=== PATIENT | male | born 1965 | race Caucasian/White ===

== ENCOUNTER → 2016-11-09 | Outpatient (CLI) | payer OTHER ==
--- NOTE | 2016-11-09 18:52 | MR ---
EXAMINATION TYPE: MR lumbar spine wo con DATE OF EXAM: 11/09/2016 6:23 PM COMPARISON: Lumbar spine x-ray 10/21/2016 HISTORY: Lumbago with sciatica, right side TECHNIQUE: T1 and T2 axial and sagittal images of the lumbar spine are submitted. FINDINGS: There is no abnormal signal seen within the visualized spinal cord or paraspinal soft tissu es. Simple appearing left renal cyst noted. At L1-2 there is no disc herniation or canal stenosis. Mild hypertrophic change of the facets noted. At L2-3 there is mild hypertrophic change of the facets. No disc herniation or canal stenosis. Small vertebral body hemangioma of L3 At L3-4 there is mild broad-based central disc bulging. There is hypertrophic change of sex. No signi ficant foraminal encroachment. No Canal stenosis At L4-5 there is degenerative disc disease with grade 1 anterolisthesis. Large nerve root sleeve dive rticulum on the right is seen. Synovial cyst related to facet joint external to the canal also suspec matthew. There likely is mass effect upon the exiting right nerve root. There is severe facet arthropathy appears responsible for the spondylolisthesis. Bilateral foraminal encroachment greater on the right . At L5-S1 there is moderate to severe facet arthropathy. Very mild central disc bulging but no canal s tenosis or focal herniation. Neural foramina patent. IMPRESSION: 1. Severe facet arthropathy result in a grade 1 anterolisthesis of L4 on L5 with bilateral foraminal encroachment and moderate canal stenosis as discussed above. There is abnormal signal on the sagittal view within the right neural foramina which appears to represent a combination of disc and cyst. Pos sibly related to synovial cyst. This is resulting in severe right-sided foraminal encroachment and pr obable nerve root impingement. 2. Moderate to severe facet arthropathy L5-S1 with very mild central disc broad-based bulging but no canal stenosis. 3. Broad-based central disc bulging L3-L4 but no canal stenosis.
== END | disposition home or self-care (01) ==
LOC: RADMRIMAIN 17:32
PROVIDERS: ATTEND Family Medicine
DX: M48.06 Spinal stenosis, lumbar region (principal); M51.16 Intervertebral disc disorders with radiculopathy, lumbar region; M51.17 Intervertebral disc disorders with radiculopathy, lumbosacral region; M43.16 Spondylolisthesis, lumbar region; M46.86 Other specified inflammatory spondylopathies, lumbar region; M46.87 Other specified inflammatory spondylopathies, lumbosacral region
CPT/HCPCS: 72148

== ENCOUNTER 2017-07-06 10:35 | Day surgery (SDC) | payer OTHER ==
[2017-07-04 15:41] VITALS: BMI 29.9
[~2017-07-06 10:35] MED LIST: DEXAMETHASONE SOD PHOSPHATE 10 MG/ML 1 ML VIAL IV ONE; HEPARIN SODIUM,PORCINE 5,000 UNIT/ML 1 ML VIAL SQ ONE; HYDROmorphone 0.5 MG/0.5 ML SYRINGE IVP PRN; LACTATED RINGERS 1,000 ML IV SCH; ONDANSETRON 4 MG/2 ML VIAL IVP ONE; Pre Op ABX Message 1 EACH MISC MISCELLANE ONE
[2017-07-06] MEDS: BUPIVACAINE LIPOSOME/PF 1.3% 20 ML, SODIUM CHLORIDE 0.9% 10 ML MISCELLANE ONE ×6 (11:50→13:37)
[2017-07-06] MEDS ORDERED: MIDAZOLAM 2 MG/2 ML VIAL ONE (12:54)
[2017-07-06] MEDS ORDERED: SUCCINYLCHOLINE CHLORIDE 100 MG/5 ML SYR IV ONE (12:54)
[2017-07-06] MEDS ORDERED: ROCURONIUM BROMIDE 10 MG/ML 10 ML VIAL IV ONE (12:54)
[2017-07-06] MEDS ORDERED: fentaNYL (PF) 50 MCG/ML 2 ML AMP ONE (12:54)
[2017-07-06] MEDS ORDERED: GLYCOPYRROLATE 0.2 MG/ML 2 ML VIAL ONE (12:54)
[2017-07-06] MEDS ORDERED: PROPOFOL 10 MG/ML 20 ML VIAL IV ONE (12:54)
[2017-07-06] MEDS ORDERED: NEOSTIGMINE 1 MG/ML 10 ML VIAL ONE (12:54)
[2017-07-06 13:58] VITALS: TEMP 97.6
--- NOTE | 2017-07-06 14:02 | P.OP ---
Date of Procedure: 07/06/17 Preoperative Diagnosis: 3 rd degree hemorrhoif Postoperative Diagnosis: 3rd Degree hemorrhoids Procedure(s) Performed: Hemorrhoidectomy with LigaSure Anesthesia: RELL Surgeon: Cleveland Sheikh Pathology: other Condition: stable Disposition: PACU Description of Procedure: Patient is a 50-year-old gentleman who is a large third-degree posterior relocated hemorrhoid. He bleeding. Since today for hemorrhoidectomy. After obtaining informed consent objective the operating room and after appropriate timeout placed in the prone jackknife position after getting general anesthesia. The buttock cheeks were appropriately retracted areas were prepped and draped in the usual sterile surgical fashion after which the hemorrhoid was grabbed and elevated. The LigaSure were used to go across its base thus taking the entire pedicle. There was only one large posterior hemorrhoid there were no anterior hemorrhoids. Once that was done hemostasis was secured with the help of 2-0 chromic catgut. Packing dressing was applied 4 x 4's and tape was applied. Patient tolerated procedure well there were no complications. Patient was extubated taken to recovery room in stable condition.
[2017-07-06 14:04] VITALS: RESP 18
[2017-07-06] MEDS ORDERED: KETOROLAC 30 MG/ML 1 ML VIAL IVP ONE (14:05)
[2017-07-06 14:41] VITALS: BP 125/83; PULSE 72
== END 2017-07-06 15:05 | disposition home or self-care (01) ==
LOC: OR 10:35
PROVIDERS: ATTEND Surgery
DX: K64.2 Third degree hemorrhoids (principal); I10 Essential (primary) hypertension; Z86.718 Personal history of other venous thrombosis and embolism; Z86.711 Personal history of pulmonary embolism; Z79.82 Long term (current) use of aspirin; Z79.899 Other long term (current) drug therapy
CPT/HCPCS: 46221; 88304; J2250; J1644; J1100; J2710; J2405; J3010; J1885; J0330; C9290; J2704

== ENCOUNTER → 2017-07-14 | Outpatient (CLI) | payer OTHER ==
--- NOTE | 2017-07-14 14:26 | US ---
EXAMINATION TYPE: US venous doppler duplex LE LT DATE OF EXAM: 07/14/2017 1:19 PM COMPARISON: NONE CLINICAL HISTORY: M79.605 PAIN IN LT LEG. calf pain today, patient states possible strain, h/o dv and svt, not on thinners now SIDE PERFORMED: Left TECHNIQUE: The lower extremity deep venous system is examined utilizing real time linear array sonog ida with graded compression, doppler sonography and color-flow sonography. VESSELS IMAGED: External Iliac Vein (EIV) Common Femoral Vein Deep Femoral Vein Greater Saphenous Vein * Femoral Vein Popliteal Vein Small Saphenous Vein * Proximal Calf Veins (* superficial vessels) Left Leg: Appears negative for acute DVT. Chronic process seen within left popiteal vein and GSV at mid calf. tech impression given to Stephanie Alamo at office @ [id number] IMPRESSION: 1. There appears to be evidence of thrombus within the popliteal vein and greater saphenous vein whic h was also seen on the previous exam. No new area of DVT identified. Finding likely reflects chronic DVT. Correlate clinically for confirmation.
== END ==
LOC: RADUSWWP 12:53
PROVIDERS: ATTEND Family Medicine
DX: M79.605 Pain in left leg (principal)

== ENCOUNTER → 2018-02-02 | Outpatient (CLI) | payer OTHER ==
[~2018-02-02] MED LIST changes: -DEXAMETHASONE SOD PHOSPHATE 10 MG/ML 1 ML VIAL IV ONE; -HEPARIN SODIUM,PORCINE 5,000 UNIT/ML 1 ML VIAL SQ ONE; -HYDROmorphone 0.5 MG/0.5 ML SYRINGE IVP PRN; -LACTATED RINGERS 1,000 ML IV SCH; -ONDANSETRON 4 MG/2 ML VIAL IVP ONE; -Pre Op ABX Message 1 EACH MISC MISCELLANE ONE; +REGADENOSON 0.4 MG/5 ML SYRINGE IV ONE
--- NOTE | 2018-02-02 11:19 | NM ---
EXAMINATION TYPE: NM stress lexiscan cardiolite DATE OF EXAM: 02/02/2018 COMPARISON: NONE HISTORY: Chest pain TECHNIQUE: After the intravenous administration of 10.5 mCi Tc 99m Sestamibi - Cardiolite resting SP ECT images acquired 45 minutes post injection. The patient received 0.4mg Lexiscan, 25.8 mCi Tc 99m Sestamibi - Stress images obtained [address] injection FINDINGS: Review of stress and rest SPECT images demonstrates no distinct perfusion abnormality. Gated analysi s shows normal wall motion with an estimated left ventricular ejection fraction of 52 %. IMPRESSION: No scintigraphic evidence for reversible ischemia.
--- NOTE | 2018-02-02 11:33 | EST ---
EXERCISE STRESS AGE: 53 SEX: M HT: 5'11" WT: 220 PROTOCOL: Lexiscan Cardiolite Stress Test HEART RATE REST: 87 BLOOD PRESSURE REST: 149/79 MAXIMUM HEART RATE ACHIEVED: 108 MAXIMUM BLOOD PRESSURE: 149/79 85% MPHR: 142 100% MPHR: 167 INDICATIONS: Chest pain. CLINICAL INFORMATION: STRESS DATA: Pretesting physical examination showed a heart rate of 787, pressure is 149/79 mmHg. Baseline EKG shows sinus mechanism. 0.4 mg of Lexiscan was given to the patient over 15 seconds per protocol. The max heart rate was 108 beats per minute and maximum pressure was 149/79 mmHg. Clinically, the patient did not have any symptoms of chest pain or discomfort. The EKG did not show any significant ST or T-wave abnormalities consistent with ischemia. CONCLUSION: 1. Nondiagnostic electrocardiogram stress testing in response to Lexiscan. 2. Please follow up on the Cardiolite portion on separate report from the Radiology Department. MMODL / IJN: [id number] /
== END | disposition home or self-care (01) ==
LOC: RADNMMAIN 07:57
PROVIDERS: ATTEND Family Medicine
DX: R07.9 Chest pain, unspecified (principal); Z82.49 Family history of ischemic heart disease and other diseases of the circulatory system
CPT/HCPCS: 93017; 78452; A9500; J2785

== ENCOUNTER 2018-09-26 12:25 | Inpatient (IN) | payer BC, OTHER ==
[2018-09-26] MEDS ORDERED: ADENOSINE 3 MG/ML 2 ML VIAL IVP STA ×3 (12:46→18:04)
[2018-09-26] MEDS ORDERED: ASPIRIN 81 MG PO STA (12:46)
[2018-09-26] MEDS ORDERED: SODIUM CHLORIDE 0.9% 1,000 ML IV STA (12:46)
--- NOTE | 2018-09-26 13:12 | ED ---
Chest Pain HPI - General Chief Complaint: Chest Pain Stated Complaint: CHEST PAIN Time Seen by Provider: 09/26/18 12:35 Source: patient, family, RN notes reviewed Mode of arrival: ambulatory Limitations: no limitations - History of Present Illness Initial Comments: This is a 53-year-old male with a history of pulmonary embolism in the past who states he had the onset about 45 minutes prior to arrival of midsternal chest discomfort he described it as crampy and tight 6/10 severity some slight shortness of breath with it. He denied any palpitations fevers chills nausea vomiting sweats or other symptoms. He states this does not feel like his prior PE episode. This is only several years ago this occurred. He does state he was drinking quite heavily over New Year's day which is 2 days ago he has some coffee this morning no new medications. MD Complaint: chest pain - Related Data Home Medications Medication Instructions Recorded Confirmed Lisinopril/Hydrochlorothiazide 1 tab PO DAILY 09/08/15 09/26/18 [Lisinopril-Hctz 10-12.5 mg Tab] Aspirin 81 mg PO DAILY 07/04/17 09/26/18 Ascorbic Acid [Vitamin C] 1,000 mg PO DAILY 09/26/18 09/26/18 Allergies Allergy/AdvReac Type Severity Reaction Status Date / Time No Known Allergies Allergy Verified 09/26/18 13:10 Review of Systems ROS Statement: Those systems with pertinent positive or pertinent negative responses have been documented in the HPI. ROS Other: All systems not noted in ROS Statement are negative. Past Medical History Past Medical History: Cancer, Deep Vein Thrombosis (DVT), Hypertension, Pulmonary Embolus (PE) Additional Past Medical History / Comment(s): HX skin cancer History of Any Multi-Drug Resistant Organisms: None Reported Past Surgical History: Cholecystectomy, Hernia Repair Additional Past Surgical History / Comment(s): LESION -SKIN CANCER Past Anesthesia/Blood Transfusion Reactions: No Reported Reaction Past Psychological History: No Psychological Hx Reported Smoking Status: Former smoker Past Alcohol Use History: Daily Past Drug Use History: None Reported - Past Family History Brother(s) Family Medical History: Coronary Artery Disease (CAD) Additional Family Medical History / Comment(s): QUAD. VESSEL BYPASS Mother Family Medical History: Cancer Additional Family Medical History / Comment(s): OVARIAN General Exam - General Exam Comments Initial Comments: This is a well-developed well-nourished awake alert oriented times 3 male Limitations: no limitations General appearance: alert, anxious Head exam: Present: atraumatic, normocephalic, normal inspection Eye exam: Present: normal appearance, PERRL, EOMI. Absent: scleral icterus, conjunctival injection, periorbital swelling ENT exam: Present: normal exam, mucous membranes moist Neck exam: Present: normal inspection. Absent: tenderness, meningismus, lymphadenopathy Respiratory exam: Present: normal lung sounds bilaterally. Absent: respiratory distress, wheezes, rales, rhonchi, stridor Cardiovascular Exam: Present: normal rhythm, tachycardia, normal heart sounds. Absent: systolic murmur, diastolic murmur, rubs, gallop, clicks GI/Abdominal exam: Present: soft, normal bowel sounds. Absent: distended, tenderness, guarding, rebound, rigid Extremities exam: Present: normal inspection, full ROM, normal capillary refill. Absent: tenderness, pedal edema, joint swelling, calf tenderness Back exam: Present: normal inspection Neurological exam: Present: alert, oriented X3, CN II-XII intact Psychiatric exam: Present: normal affect, normal mood Skin exam: Present: warm, dry, intact, normal color. Absent: rash Course Vital Signs 09/26/18 09/26/18 09/26/18 12:28 13:13 13:18 Temperature 97.5 F L Pulse Rate 116 H 126 H 129 H Respiratory 18 Rate Blood Pressure 180/119 146/118 147/100 O2 Sat by Pulse 97 94 L 94 L Oximetry 09/26/18 13:22 Temperature Pulse Rate 125 H Respiratory 18 Rate Blood Pressure 133/102 O2 Sat by Pulse 94 L Oximetry - Reevaluation(s) Reevaluation #1: 09/26/18 13:26 Patient is state he has some relief with the nitroglycerin was administered. He also did have a headache from it. His heart rate still maintains approximately 120. He also states he did not take his lisinopril this morning. Reevaluation #2: 09/26/18 14:25 Patient is feeling somewhat better. Chest pain has improved his heart rate still is in the 1 teens to 120. I did discuss the findings with the patient and his . I did also discuss case with Dr. House patient will be admitted for evaluation by cardiology. The patient d-dimer is within normal limits Procedures - Procedures Initial comment: Patient did have evidence of SVT. Patient was given IV adenosine first 6 mg which did not change the rate he had this was followed by 12 mg IV push the patient rate did improve to around 120 bpm with frequent unifocal PVCs noted. Patient still is having chest pain afterwards. Aspirin and sublingual nitroglycerin are ordered. Disposition Clinical Impression: Unstable angina, Supraventricular tachycardia, Premature ventricular contractions, Elevated troponin, Chest pain, Sinus tachycardia Disposition: ADMITTED IP TO THIS HOSP Condition: Stable Referrals: Anand Schmid MD [Primary Care Provider] - 1-2 days
[2018-09-26] MEDS: NITROGLYCERIN SL TABS 0.4 MG TAB SUBLINGUAL STA ×3 (13:13→13:22)
[2018-09-26] MEDS ORDERED: MORPHINE SULFATE 4 MG/ML SYRINGE IVP STA (13:24)
[2018-09-26 13:26] LABS: Basophils # (A) 0.1 k/uL (0-0.2); Basophils % (A) 1 %; Eosinophils # (A) 0.3 k/uL (0-0.7); Eosinophils % (A) 2 %; HCT 52.7 % (39.0-53.0); HGB 18.4 gm/dL (13.0-17.5); Lymphocytes # (A) 2.3 k/uL (1.0-4.8); Lymphocytes % (A) 21 %; MCH 32.5 pg (25.0-35.0); MCHC 34.9 g/dL (31.0-37.0); MCV 93.1 fL (80.0-100.0); Mean Platelet Volume 7.6; Monocytes # (A) 0.6 k/uL (0-1.0); Monocytes % (A) 5 %; Neutrophils # (A) 7.6 k/uL (1.3-7.7); Neutrophils % (A) 69 %; Platelet Count 297 k/uL (150-450); RBC 5.65 m/uL (4.30-5.90); RDW 12.4 % (11.5-15.5); WBC 11.1 k/uL (3.8-10.6)
[2018-09-26 13:37] LABS: ALT 64 U/L (21-72); AST 46 U/L (17-59); Albumin 4.4 g/dL (3.5-5.0); Alkaline Phosphatase 100 U/L (38-126); Anion Gap 10 mmol/L; Blood Urea Nitrogen 15 mg/dL (9-20); Calcium 9.6 mg/dL (8.4-10.2); Carbon Dioxide 26 mmol/L (22-30); Chloride 104 mmol/L (98-107); Glucose 123 mg/dL (74-99); Potassium 4.4 mmol/L (3.5-5.1); Sodium 140 mmol/L (137-145); Total Bilirubin 0.8 mg/dL (0.2-1.3); Total Protein 7.4 g/dL (6.3-8.2)
[2018-09-26 13:38] LABS: D-Dimer 0.36 mg/L FEU (<0.60); INR 0.9 (<1.2); Partial Thromboplastin Time 23.2 sec (22.0-30.0)
--- NOTE | 2018-09-26 13:51 | XR ---
EXAMINATION TYPE: XR chest 2V DATE OF EXAM: 09/26/2018 COMPARISON: NONE TECHNIQUE: PA and lateral views submitted. HISTORY: Chest pain FINDINGS: The lungs are clear and there is no pneumothorax, pleural effusion, or focal pneumonia. Upper media stinum is mildly prominent there is hypertrophic and degenerative change of the spine. Surgical clip in the abdomen noted. No overt failure. Biapical pleural thickening. IMPRESSION: 1. Mildly prominent upper mediastinum is nonspecific and could be correlated with CT scan as clinical ly warranted.
[2018-09-26 14:07] LABS: Creatine Kinase MB 1.2 ng/mL (0.0-2.4)
[2018-09-26 14:12] LABS: Troponin I 0.067 ng/mL (0.000-0.034)
[2018-09-26] MEDS ORDERED: HEPARIN SODIUM,PORCINE 5,000 UNIT/ML 1 ML VIAL IV ONE (14:27)
[2018-09-26] MEDS ORDERED: NITROGLYCERIN SL TABS 0.4 MG TAB SUBLINGUAL PRN (14:27)
[2018-09-26] MEDS: HEPARIN SOD,PORK IN 0.45% NACL 25,000 UNIT in 0.45% NACL 1 250ML.BAG IV SCH (16:05)
[2018-09-26] MEDS ORDERED: LISINOPRIL-HCTZ 10-12.5 MG 1 EACH TAB PO STA (16:11)
[2018-09-26] MEDS ORDERED: VERAPAMIL 80 MG TAB PO STA (18:15)
[2018-09-26 19:59] LABS: Creatine Kinase MB 3.7 ng/mL (0.0-2.4)
[2018-09-26 20:00] LABS: Troponin I 1.73 ng/mL (0.000-0.034)
[2018-09-26] MEDS: NITROGLYCERIN OINT 1 INCH/GM PACKET TOPICAL SCH ×2 (20:58→22:52)
[2018-09-26] MEDS: VERAPAMIL 80 MG TAB PO SCH (21:57)
[2018-09-27] MEDS ORDERED: HYDROcodone/APAP 5-325MG 1 EACH TAB PO PRN (00:11)
[2018-09-27] MEDS ORDERED: ALPRAZolam 0.25 MG TAB PO PRN ×2 (00:11→09:33)
[2018-09-27 01:59] LABS: Creatine Kinase MB 4.6 ng/mL (0.0-2.4)
[2018-09-27 02:01] LABS: Troponin I 0.924 ng/mL (0.000-0.034)
--- NOTE | 2018-09-27 05:20 | HP ---
HISTORY AND PHYSICAL DATE OF SERVICE: 09/26/2018 CHIEF COMPLAINT: Chest pain and palpitations. HISTORY OF PRESENT ILLNESS: This 53-year-old gentleman with a past medical history of multiple medical problems including history of DVT, history of hypertension, history of pulmonary embolism , history of cholecystectomy, history of hernia repair being followed by Dr. Schmid in the outpatient setting, was complaining of chest pains and as well as palpitations. The chest pain was felt in the crampy mid sternal 6 out of 10 and this is without radiation. The patient came to [facility] and the patient was found to have multiple episodes of SVT. Patient was given adenosine x2 and the patient admitted for further evaluation and treatment. There is no history of any fever, rigors. No history of headache, loss of consciousness or seizures. PVCs also noted. The troponins were found to be elevated up to 0.067 and 1.73 and the patient was closely monitored. There is no history of fever or rigors. No history of headache, loss of consciousness or seizures. PAST MEDICAL HISTORY: History of DVT, history hypertension, history of pulmonary embolism, cholecystectomy. MEDICATIONS: Medications prior to admission include: 1. Aspirin 81 mg daily. 2. Lisinopril hydrochlorothiazide 10/12.5 mg p.o. daily. 3. Vitamin C 1000 mg daily. ALLERGIES: Allergies are none. FAMILY HISTORY: History of ovarian cancer in the family. SOCIAL HISTORY: History of occasional alcohol. Previous history of smoking. REVIEW OF SYSTEMS: ENT: No diminished hearing or diminished vision. CARDIOVASCULAR SYSTEM: As mentioned earlier. RESPIRATORY SYSTEM: As mentioned earlier. GI: No nausea. : No dysuria. NERVOUS SYSTEM: No numbness or weakness. ALLERGY/IMMUNOLOGY: No history of asthma. MUSCULOSKELETAL: As mentioned earlier. HEMATOLOGY/ONCOLOGY: No history of anemia. ENDOCRINE: No history of diabetes or hypothyroidism. CONSTITUTIONAL: As mentioned earlier. DERMATOLOGY: Negative. RHEUMATOLOGY: Negative. PSYCHIATRY: As mentioned earlier. PHYSICAL EXAMINATION: The patient is alert and oriented x3. The pulse is 109. Blood pressure 114/74, respiration 15, temperature 98.6, pulse ox 96% on room air. HEENT: Conjunctivae normal. Oral mucosa moist. Neck is no jugular venous distention. No carotid bruit. No lymph node enlargement. CARDIOVASCULAR: S1, S2 muffled. No S3, no S4. RESPIRATORY: Breath sounds diminished at the bases. No rhonchi. No crackles. ABDOMEN: Soft, nontender. No mass palpable. LEGS: No edema. No swelling. NERVOUS SYSTEM: Higher functions as mentioned earlier. Moves all 4 limbs. No focal deficits. LYMPHATICS: No lymphadenopathy of the neck, axillae or groin. SKIN: No ulcer, rash or bleeding. JOINTS: No active deforming arthropathy. LABS: EKG supraventricular tachycardia. Chest x-ray, mild prominent mediastinum. . Other labs are WBC 11.1, hemoglobin is 18.4. Troponin 1.730. ASSESSMENT: 1. Chest pain possible acute non ST segment elevation myocardial infarction with troponin 1.730. 2. Supraventricular tachycardia. 3. History of deep venous thrombosis. 4. History of hypertension. 5. History of pulmonary embolism. 6. History of skin cancer. 7. History of diverticulitis. 8. History of cholecystectomy. 9. Remote history of nicotine dependence. RECOMMENDATIONS AND DISCUSSION: This 53-year-old gentleman who presented with multiple medical issues, we will monitor the patient closely. Continue the current medications, continue symptomatic treatment. Will initiate the home medications, IV heparin, cardiology consultation possible cardiac cath. The prognosis guarded because of the multiple complex medical issues. Further recommendations to follow. A copy of dictation forwarded to Dr. Schmid who is the primary physician. Cardiology has been consulted. MMODL / IJN: [id number] / MTDD
[2018-09-27] MEDS: NITROGLYCERIN OINT 1 INCH/GM PACKET TOPICAL SCH ×2 (06:00→11:49)
[2018-09-27 07:14] LABS: Cholesterol 162 mg/dL (<200); HDL Cholesterol 50 mg/dL (40-60); LDL Cholesterol,Calculated 81 mg/dL (0-99); Triglycerides 154 mg/dL (<150)
[2018-09-27] MEDS: PANTOPRAZOLE 40 MG TABLET PO SCH (07:29)
[2018-09-27] MEDS ORDERED: LISINOPRIL-HCTZ 10-12.5 MG 1 EACH TAB PO SCH (09:00)
[2018-09-27] MEDS ORDERED: ASPIRIN 325 MG TAB PO SCH (09:00)
[2018-09-27] MEDS ORDERED: ATORVASTATIN 80 MG TAB PO SCH (09:30)
[2018-09-27] MEDS ORDERED: NITROGLYCERIN SL TABS 0.4 MG TAB SUBLINGUAL PRN (09:33)
[2018-09-27] MEDS ORDERED: ATORVASTATIN 80 MG TAB PO STA (09:33)
[2018-09-27] MEDS ORDERED: SODIUM CHLORIDE 0.9% 1,000 ML in EMPTY BAG 1 BAG IV ONE (09:33)
[2018-09-27] MEDS ORDERED: ALPRAZolam 0.5 MG TAB PO PRN (09:33)
[2018-09-27] MEDS ORDERED: ASPIRIN 325 MG TAB PO STA (09:33)
--- NOTE | 2018-09-27 10:06 | P.CRDCN ---
History of Present Illness History of present illness: This is Dr. Soriano dictating a consult on this patient The patient was interviewed and examined by me IMPRESSION / ASSESSMENT: Non-Q wave myocardial infarction with abnormal ECG with ST segment abnormality with T-wave inversions, Troponins of 0.06, 1.73, 0.92 SVT, adenosine sensitive,likely AV node reentry, Wellens sign Past history of pulmonary embolism Aspirin statins low-dose beta blockers patient's blood pressure is low Hypertension on lisinopril hydrochlorothiazide History of empty HFR-positive gene and DVT) members and Lower GI bleeding on anticoagulation Family history of CAD and coronary artery bypass grafting Former smoker Regular alcohol use PLAN: Coronary angiography today Medical treatment for hypertension SVT CAD Statins and baby aspirin HPI Patient presented with midsternal chest discomfort lasting 45 minutes prior to arrival 610 severity. He states it did not feel like the chest pain he had when he experienced his pulmonary embolism No dizziness lightheadedness ROS: No fever chills or rigors, no cough, phlegm or expectoration, no nausea, vomiting or diarrhea, no hematuria, dysuria, no musculoskeletal complaints, no strokes or seizures, no skin lesions. EXAMINATION: On examination blood pressure is 102/64 mmHg heart sounds are normal Breath sounds are clear no rhonchi no crackles Normal S1 normal S2 no murmurs or gallops Afebrile No lower extremity edema REVIEW OF LABS, ECG & MEDICAL DATA Abnormal cardiac enzymes Twelve-lead ECG shows cold up fluids ST segments with T-wave inversion V2 to V6 Supra ventricular tachycardia likely AV luciana reentrant tachycardia adenosine sensitive Past Medical History Past Medical History: Cancer, Deep Vein Thrombosis (DVT), Hypertension, Pulmonary Embolus (PE) Additional Past Medical History / Comment(s): HX skin cancer, diverticulitis, hemorrhoids(sx)- past anemia required blood trasnfusion. History of Any Multi-Drug Resistant Organisms: None Reported Past Surgical History: Cholecystectomy, Hernia Repair Additional Past Surgical History / Comment(s): LESION -SKIN CANCER , hemorrhoidectomy Past Anesthesia/Blood Transfusion Reactions: No Reported Reaction Additional Past Anesthesia/Blood Transfusion Reaction / Comment(s): blood transfusions in past-no reaction Smoking Status: Former smoker - Past Family History Brother(s) Family Medical History: Coronary Artery Disease (CAD) Additional Family Medical History / Comment(s): QUAD. VESSEL BYPASS Mother Family Medical History: Cancer Additional Family Medical History / Comment(s): OVARIAN Medications and Allergies Home Medications Medication Instructions Recorded Confirmed Type Lisinopril/Hydrochlorothiazide 1 tab PO DAILY 09/08/15 09/26/18 History [Lisinopril-Hctz 10-12.5 mg Tab] Aspirin 81 mg PO DAILY 07/04/17 09/26/18 History Ascorbic Acid [Vitamin C] 1,000 mg PO DAILY 09/26/18 09/26/18 History Allergies Allergy/AdvReac Type Severity Reaction Status Date / Time No Known Allergies Allergy Verified 09/26/18 13:10 Physical Exam Vitals: Vital Signs Temp Pulse Pulse Resp BP BP Pulse Ox 09/27/18 04:00 97.4 F L 95 18 102/64 96 09/27/18 00:00 98.3 F 100 18 91/59 95 09/26/18 20:23 98.6 F 107 H 09/26/18 20:00 98.1 F 98 100 18 110/79 120/85 98 09/26/18 19:00 109 H 15 114/74 96 09/26/18 18:35 117 H 18 121/74 95 09/26/18 18:00 165 H 16 129/107 95 09/26/18 17:00 112 H 17 122/87 97 09/26/18 16:00 116 H 16 120/100 96 09/26/18 15:00 117 H 18 116/98 96 09/26/18 14:00 120 H 17 134/101 96 09/26/18 13:22 125 H 18 133/102 94 L 09/26/18 13:18 129 H 147/100 94 L 09/26/18 13:13 126 H 146/118 94 L 09/26/18 13:00 165 H 16 137/121 94 L 09/26/18 12:28 97.5 F L 116 H 18 180/119 97 Intake and Output 09/26/18 09/27/18 09/27/18 22:59 06:59 14:59 Intake Total 109.5 96.843 Output Total 0 Balance 109.5 96.843 Intake: IV 30 0.9 30 Intake, IV Titration 79.5 96.843 Amount Heparin Sod,Pork in 0.45% 79.5 96.843 NaCl 25,000 unit In 0.45 % NaCl 1 250ml.bag @ 10. 022 UNITS/KG/HR 10 mls/hr IV .Q24H [facility] Rx#: [id number] Output: Urine 0 Other: Voiding Method Toilet Toilet # Voids 1 Weight 106.3 kg Results 09/26/18 12:56 09/26/18 12:56 Cardiac Enzymes 09/26/18 09/26/18 09/26/18 Range/Units 12:56 12:56 18:50 AST 46 (17-59) U/L CK-MB (CK-2) 1.2 3.7 H (0.0-2.4) ng/mL Troponin I 0.067 H* 1.730 H* (0.000-0.034) ng/mL 09/27/18 Range/Units 01:06 AST (17-59) U/L CK-MB (CK-2) 4.6 H (0.0-2.4) ng/mL Troponin I 0.924 H* (0.000-0.034) ng/mL Coagulation 09/26/18 09/26/18 09/27/18 Range/Units 12:56 23:18 05:58 PT 10.0 (9.0-12.0) sec APTT 23.2 31.3 H 37.7 H (22.0-30.0) sec Lipids 09/27/18 Range/Units 05:58 Triglycerides 154 H (<150) mg/dL Cholesterol 162 (<200) mg/dL HDL Cholesterol 50 (40-60) mg/dL CBC 09/26/18 Range/Units 12:56 WBC 11.1 H (3.8-10.6) k/uL RBC 5.65 (4.30-5.90) m/uL Hgb 18.4 H (13.0-17.5) gm/dL Hct 52.7 (39.0-53.0) % Plt Count 297 (150-450) k/uL Comprehensive Metabolic Panel 09/26/18 Range/Units 12:56 Sodium 140 (137-145) mmol/L Potassium 4.4 (3.5-5.1) mmol/L Chloride 104 (98-107) mmol/L Carbon Dioxide 26 (22-30) mmol/L BUN 15 (9-20) mg/dL Creatinine 1.03 (0.66-1.25) mg/dL Glucose 123 H (74-99) mg/dL Calcium 9.6 (8.4-10.2) mg/dL AST 46 (17-59) U/L ALT 64 (21-72) U/L Alkaline Phosphatase 100 (38-126) U/L Total Protein 7.4 (6.3-8.2) g/dL Albumin 4.4 (3.5-5.0) g/dL Current Medications Generic Name Dose Route Start Last Admin Trade Name Freq PRN Reason Stop Dose Admin Acetaminophen 500 mg 09/27/18 00:11 Tylenol Tab PO Q6HR PRN Fever and/ or Pain Hydrocodone Bitart/Acetaminophen 1 each 09/27/18 00:11 [place] 5-325 PO Q6HR PRN Pain Alprazolam 0.25 mg 09/27/18 09:33 Xanax PO Q6HR PRN Mild Anxiety Alprazolam 0.5 mg 09/27/18 09:33 Xanax PO Q6HR PRN Moderate Anxiety Aspirin 325 mg 09/27/18 09:00 Aspirin PO DAILY [facility] Atorvastatin Calcium 80 mg 09/27/18 09:30 Lipitor PO DAILY [facility] Lisinopril/HCTZ 1 each 09/27/18 09:00 Zestoretic 10-12.5 PO DAILY [facility] Heparin Sodium/Sodium Chloride 250 mls @ 10 mls/hr 09/26/18 14:30 09/27/18 07 :30 25,000 unit/ Sodium Chloride IV 16 units/kg/hr .Q24H [facility] 15.96 mls/hr Titration Protocol 10.022 UNITS/KG/HR Sodium Chloride 1,000 ml/ IV 1,000 mls @ 106.3 mls/hr 09/27/18 09:33 Solution IV 09/27/18 18:57 .Q9H25M ONE 1 ML/KG/HR Metoprolol Tartrate 12.5 mg 09/27/18 09:30 Lopressor PO BID [facility] Nitroglycerin 1 inch 09/26/18 18:00 09/27/18 06:00 Nitro-Bid Oint TOPICAL Not Given Q6HR [facility] Nitroglycerin 0.4 mg 09/27/18 09:33 Nitrostat SUBLINGUAL Q5M PRN Chest Pain Pantoprazole Sodium 40 mg 09/27/18 07:30 09/27/18 07:29 Protonix PO 40 mg AC-[id number] [facility] Administration Intake and Output 09/26/18 09/27/18 09/27/18 22:59 06:59 14:59 Intake Total 109.5 96.843 Output Total 0 Balance 109.5 96.843 Intake: IV 30 0.9 30 Intake, IV Titration 79.5 96.843 Amount Heparin Sod,Pork in 0.45% 79.5 96.843 NaCl 25,000 unit In 0.45 % NaCl 1 250ml.bag @ 10. 022 UNITS/KG/HR 10 mls/hr IV .Q24H [facility] Rx#: [id number] Output: Urine 0 Other: Voiding Method Toilet Toilet # Voids 1 Weight 106.3 kg 09/26/18 12:56 09/26/18 12:56
[2018-09-27] MEDS ORDERED: fentaNYL (PF) 50 MCG/ML 2 ML AMP ONE (10:35)
[2018-09-27] MEDS ORDERED: LIDOCAINE 1% INJ 10MG/ML (20 ML MDV) ONE (10:35)
[2018-09-27] MEDS ORDERED: IV FLUID CONTINUATION 950 ML IV ONE (10:45)
[2018-09-27] MEDS ORDERED: fentaNYL (PF) 50 MCG/ML 2 ML AMP IV ONE (10:59)
[2018-09-27] MEDS: MIDAZOLAM 2 MG/2 ML VIAL IV ONE ×2 (10:59→11:01)
[2018-09-27] MEDS ORDERED: LIDOCAINE 1% INJ 10MG/ML (20 ML MDV) SQ ONE ×2 (10:59→11:00)
[2018-09-27] MEDS ORDERED: IOPAMIDOL-370 125ML BTL INJ ONE (11:15)
[2018-09-27] MEDS ORDERED: RX INFO: IV CONTRAST WAS GIVEN 1 EACH MISC MISCELLANE PRN (11:27)
[2018-09-27] MEDS ORDERED: CLOPIDOGREL 75 MG TAB PO SCH (11:30)
--- NOTE | 2018-09-27 12:19 | CC ---
CARDIAC CATHETERIZATION REPORT Mr. Hoover is a 53-year-old gentleman who was admitted with chest pain and palpitations. Patient's initial EKG showed supraventricular tachycardia. Subsequent EKG showed evidence of T-wave inversions in the anterior lateral leads. Patient had a mild elevation in the troponin. He is suggestive of possible non-Q-wave myocardial infarction. In view of that, the patient was recommended to have a cardiac catheterization for definitive diagnosis. PROCEDURE DESCRIPTION: The right groin was prepped and draped in the usual manner and the skin was infiltrated with 2% Xylocaine. The right femoral artery was entered using a Seldinger technique and a micropuncture needle. The patient tolerated the procedure well. Sheath was removed and good hemostasis was achieved with the use of Angio-Seal. HEMODYNAMICS: Left ventricular end-diastolic pressure is 20-22 mmHg prior to angiography. No gradient is noted across the aortic valve. Moderate sedation was used. Sedation time was 20 minutes. SELECTIVE CORONARY ANGIOGRAPHY: Left main coronary artery is normal and patent. LAD is a good caliber blood vessel. Proximal LAD has about minimal plaque about 20% stenosis. Circumflex coronary artery is normal. Right coronary artery is a large caliber blood vessel and is normal. Left ventriculography was performed in 30-degree CATHERINE projections, which reveals extensive anterior apical as well as inferior apical hypokinesia, only basal segments are ciera. This is suggestive of possible takotsubo syndrome. FINAL IMPRESSION: 1. This study reveals minimal plaque in the proximal left anterior descending artery. 2. Circumflex and right coronary arteries are normal. 3. Left ventriculography reveals extensive anterior apical and inferior apical hypokinesia with only basal segments are ciera suggestive of possible takotsubo syndrome. RECOMMENDATIONS: Continue medical treatment. Also do the D-dimer test to rule out any remote possibility of pulmonary embolism. MMODL / IJN: [id number] /
[2018-09-27 12:37] LABS: Basophils # (A) 0.1 k/uL (0-0.2); Basophils % (A) 1 %; Eosinophils # (A) 0.3 k/uL (0-0.7); Eosinophils % (A) 3 %; HCT 47.6 % (39.0-53.0); HGB 15.9 gm/dL (13.0-17.5); Lymphocytes # (A) 1.5 k/uL (1.0-4.8); Lymphocytes % (A) 19 %; MCH 31.5 pg (25.0-35.0); MCHC 33.5 g/dL (31.0-37.0); MCV 94.1 fL (80.0-100.0); Mean Platelet Volume 7.7; Monocytes # (A) 0.5 k/uL (0-1.0); Monocytes % (A) 6 %; Neutrophils # (A) 5.7 k/uL (1.3-7.7); Neutrophils % (A) 71 %; Platelet Count 183 k/uL (150-450); RBC 5.05 m/uL (4.30-5.90); RDW 12.4 % (11.5-15.5); WBC 8.1 k/uL (3.8-10.6)
[2018-09-27 12:52] LABS: Anion Gap 3 mmol/L; Blood Urea Nitrogen 12 mg/dL (9-20); Calcium 8.9 mg/dL (8.4-10.2); Carbon Dioxide 31 mmol/L (22-30); Chloride 105 mmol/L (98-107); Glucose 116 mg/dL (74-99); Magnesium 2.1 mg/dL (1.6-2.3); Potassium 4.8 mmol/L (3.5-5.1); Sodium 139 mmol/L (137-145)
[2018-09-27] MEDS: METOPROLOL TARTRATE 12.5 MG TAB PO SCH ×2 (12:52→20:20)
--- NOTE | 2018-09-27 14:09 | ECHOF ---
Referral Reason:nstemi MEASUREMENTS -------- HEIGHT: 180.3 cm WEIGHT: 106.1 kg BP: 102/64 RVIDd: 3.0 cm (< 3.3) IVSd: 1.2 cm (0.6 - 1.1) LVIDd: 3.9 cm (3.9 - 5.3) LVPWd: 1.2 cm (0.6 - 1.1) IVSs: 1.3 cm LVIDs: 3.6 cm LVPWs: 1.3 cm LAESV Index (A-L): 23.58 ml/m Ao Diam: 3.6 cm (2.0 - 3.7) AV Cusp: 2.3 cm (1.5 - 2.6) LA Diam: 3.0 cm (2.7 - 3.8) MV E Willis: 0.52 m/s MV DecT: 246 ms MV A Willis: 0.55 m/s MV E/A Ratio: 0.94 RAP: 5.00 mmHg RVSP: 8.81 mmHg FINDINGS -------- Sinus rhythm. This was a technically adequate study. The left ventricular size is normal. There is mild concentric left ventricular hypertrophy. Overa ll left ventricular systolic function is severely impaired with, an EF between 20 - 25 %. Mid and dis sanjana s eptal Hypokinesis. Apical Hypokinesis. The right ventricle is normal in size and function. Normal LA size by volume 22+/-6 ml/m2. The right atrium is normal in size. The aortic valve is trileaflet, and appears structurally normal. No aortic stenosis or regurgitation. The mitral valve leaflets are mildly thickened. There is trace to mild mitral regurgitation. Trace tricuspid regurgitation present. Right ventricular systolic pressure is normal at < 35 mmHg. There is no evidence of pulmonary hypertension. Trace/mild (physiologic) pulmonic regurgitation. The aortic root size is normal. Normal inferior vena cava with normal inspiratory collapse consistent with estimated right atrial pre ssure of 5 mmHg. There is no pericardial effusion. CONCLUSIONS -------- 1. Sinus rhythm. 2. This was a technically adequate study. 3. The left ventricular size is normal. 4. There is mild concentric left ventricular hypertrophy. 5. Overall left ventricular systolic function is severely impaired with, an EF between 20 - 25 %. 6. Mid and distal septal Hypokinesis. 7. Apical Hypokinesis. 8. Normal LA size by volume 22+/-6 ml/m2. 9. The aortic valve is trileaflet, and appears structurally normal. No aortic stenosis or regurgitati on. 10. The mitral valve leaflets are mildly thickened. 11. There is trace to mild mitral regurgitation. 12. Trace tricuspid regurgitation present. 13. Right ventricular systolic pressure is normal at < 35 mmHg. 14. There is no evidence of pulmonary hypertension. 15. Trace/mild (physiologic) pulmonic regurgitation. 16. The aortic root size is normal. 17. There is no pericardial effusion. MEDICAL [employer]PARATUS MODEL MAKER: Yasmani Wheeler RDCS
[2018-09-27] MEDS: ACETAMINOPHEN TAB 500 MG TAB PO PRN (16:00)
[2018-09-27] MEDS: HEPARIN SOD,PORK IN 0.45% NACL 25,000 UNIT in 0.45% NACL 1 250ML.BAG IV SCH (19:04)
[2018-09-27] MEDS: VERAPAMIL 80 MG TAB PO SCH (19:05)
[2018-09-28] MEDS: ACETAMINOPHEN TAB 500 MG TAB PO PRN ×2 (05:58→21:00)
[2018-09-28] MEDS: PANTOPRAZOLE 40 MG TABLET PO SCH (05:59)
[2018-09-28 06:54] LABS: Basophils % (A) 0 %; Eosinophils # (A) 0.2 k/uL (0-0.7); Eosinophils % (A) 2 %; HCT 48.3 % (39.0-53.0); HGB 16.2 gm/dL (13.0-17.5); Lymphocytes # (A) 1.2 k/uL (1.0-4.8); Lymphocytes % (A) 9 %; MCH 31.3 pg (25.0-35.0); MCHC 33.5 g/dL (31.0-37.0); MCV 93.6 fL (80.0-100.0); Mean Platelet Volume 7.4; Monocytes # (A) 0.7 k/uL (0-1.0); Monocytes % (A) 5 %; Neutrophils # (A) 10.5 k/uL (1.3-7.7); Neutrophils % (A) 82 %; Platelet Count 215 k/uL (150-450); RBC 5.16 m/uL (4.30-5.90); RDW 12.3 % (11.5-15.5); WBC 12.8 k/uL (3.8-10.6)
[2018-09-28 07:08] LABS: Anion Gap 6 mmol/L; Blood Urea Nitrogen 11 mg/dL (9-20); Calcium 9.1 mg/dL (8.4-10.2); Carbon Dioxide 28 mmol/L (22-30); Chloride 105 mmol/L (98-107); Glucose 119 mg/dL (74-99); Potassium 4.2 mmol/L (3.5-5.1); Sodium 139 mmol/L (137-145)
[2018-09-28] MEDS: ATORVASTATIN 20 MG TAB PO SCH (09:07)
[2018-09-28] MEDS: METOPROLOL SUCCINATE (ER) 50 MG TAB.ER.24H PO SCH (09:07)
[2018-09-28] MEDS: ASPIRIN 81 MG PO SCH (09:07)
[2018-09-28] MEDS: SPIRONOLACTONE 25 MG TAB PO SCH (09:07)
--- NOTE | 2018-09-28 12:09 | P.PN ---
Subjective Patient is doing well. He denies any chest discomfort dizziness lightheadedness. 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 Plan Aspirin 81 mg by mouth daily DC Plavix Reduce atorvastatin to 20 mg daily Switched to long-acting metoprolol 50 mrem today in the morning, Add spironolactone 25 mg in the morning Lisinopril 10 mg in the evening Stop Zestoretic Objective - Vital Signs Vital signs: Vital Signs Temp 98 F 09/28/18 05:24 Pulse 107 H 09/28/18 05:24 Resp 16 09/28/18 05:24 BP 132/87 09/28/18 05:24 Pulse Ox 93 L 09/28/18 05:24 Intake & Output 09/27/18 09/28/18 09/28/18 18:59 06:59 18:59 Intake Total 1436.843 20 240 Output Total 0 0 Balance 1436.843 20 240 Weight 101.7 kg Intake: IV 100 20 0.9 20 Intake, IV Titration 896.843 Amount Heparin Sod,Pork in 0.45% 96.843 NaCl 25,000 unit In 0.45 % NaCl 1 250ml.bag @ 10. 022 UNITS/KG/HR 10 mls/hr IV .Q24H HEIDY Rx#: [id number] Sodium Chloride 0.9% 1, 800 000 ml @ 50 mls/hr IV . Q20H STA Rx#:[id number] Oral 440 240 Output: Urine 0 0 Other: Voiding Method Toilet Toilet # Voids 1 - Labs CBC & Chem 7: 09/28/18 06:12 09/28/18 06:12 Labs: Abnormal Lab Results - Last 24 Hours (Table) 09/27/18 09/28/18 09/28/18 Range/Units 12:18 06:12 06:12 WBC 12.8 H (3.8-10.6) k/uL Neutrophils # 10.5 H (1.3-7.7) k/uL Carbon Dioxide 31 H (22-30) mmol/L Glucose 116 H 119 H (74-99) mg/dL
[2018-09-28] MEDS ORDERED: LISINOPRIL 10 MG TAB PO SCH (18:00)
--- NOTE | 2018-09-28 21:06 | P.PN ---
Subjective Progress Note Date: 09/28/18 Progress note being dictated for Dr. Hinds. Interval history: This is a 53-year-old gentleman admitted with chest pain, possible acute non-STEMI, SVT and multiple other medical issues. Evaluated by cardiology. underwent cardiac catheterization, reporting non-obstructive CAD, possible takotsubo syndrome,-patient recently lost his mother. Abnormal troponins related to most likely stress cardiomyopathy not [place] as per cardiology. Tolerated procedure well, medications adjusted. D-dimer negative. Denies chest pain, palpitations or increasing shortness of breath. Objective - Vital Signs Vital signs: Vital Signs Temp 98.1 F 09/27/18 19:15 Pulse 83 09/27/18 19:15 Resp 16 09/27/18 19:15 BP 120/67 09/27/18 19:15 Pulse Ox 95 09/27/18 19:15 Intake & Output 09/27/18 09/27/18 09/28/18 06:59 18:59 06:59 Intake Total 109.5 1436.843 Output Total 0 Balance 109.5 1436.843 Weight 106.3 kg Intake: IV 30 100 0.9 30 Intake, IV Titration 79.5 896.843 Amount Heparin Sod,Pork in 0.45% 79.5 96.843 NaCl 25,000 unit In 0.45 % NaCl 1 250ml.bag @ 10. 022 UNITS/KG/HR 10 mls/hr IV .Q24H HEIDY Rx#: [id number] Sodium Chloride 0.9% 1, 800 000 ml @ 50 mls/hr IV . Q20H STA Rx#:[id number] Oral 440 Output: Urine 0 Other: Voiding Method Toilet Toilet Toilet # Voids 1 - Exam PHYSICAL EXAM: VITAL SIGNS: As above GENERAL: Lying in bed, no acute distress HEENT: Conjunctivae normal. eyes normal. Oral mucosa moist NECK: No JVD. No thyroid enlargement. No LNs CARDIOVASCULAR: S1, S2 muffled. No murmur RESPIRATION: Breath sounds diminished in the bases. No rhonchi or crackles. No bronchial breathing. ABDOMEN: Soft, nontender . No guarding. no masses palpable. Bowel sounds heard. LEGS: No edema. no swelling PSYCHIATRY: Alert and oriented -3, mood and affect normal. NERVOUS SYSTEM: Cranial N 2-12 grossly normal. Moves all 4 limbs. Diffuse weakness No focal deficits. Skin: no ulcer no rash Joints: No active swelling. No inflammation. Lymphatic system. No LN neck axilla or groin. - Labs CBC & Chem 7: 09/28/18 06:12 09/28/18 06:12 Labs: Abnormal Lab Results - Last 24 Hours (Table) 09/26/18 09/27/18 09/27/18 Range/Units 23:18 01:06 05:58 APTT 31.3 H (22.0-30.0) sec Carbon Dioxide (22-30) mmol/L Glucose (74-99) mg/dL CK-MB (CK-2) 4.6 H (0.0-2.4) ng/mL Troponin I 0.924 H* (0.000-0.034) ng/mL Triglycerides 154 H (<150) mg/dL 09/27/18 09/27/18 Range/Units 05:58 12:18 APTT 37.7 H (22.0-30.0) sec Carbon Dioxide 31 H (22-30) mmol/L Glucose 116 H (74-99) mg/dL CK-MB (CK-2) (0.0-2.4) ng/mL Troponin I (0.000-0.034) ng/mL Triglycerides (<150) mg/dL Assessment and Plan Assessment: -Chest pain, possible acute non-STEMI, SVT. Status post cardiac catheterization , reporting non-obstructive CAD, possible takotsubo syndrome,-patient recently lost his mother. Abnormal troponins related to most likely stress cardiomyopathy not [place] as per cardiology. -Hypertension -Nicotine dependence, history of Plan: Continue current medication regime ,monitoring and symptomatic treatment. Medical management as per cardiology. Abstinence of alcohol reinforced increase activity as tolerated. Follow closely with cardiology. Further recommendations to follow. The impression and plan of care has been dictated as directed. : I performed a history and examination of this patient, discussed the same with the dictator. I agree with the dictator's note ,documented as a scribe. Any additional findings or plans will be noted.
--- NOTE | 2018-09-28 21:14 | P.PN ---
Subjective Progress Note Date: 09/28/18 Progress note being dictated for Dr. Hinds. Interval history: This is a 53-year-old gentleman admitted with chest pain, possible acute non-STEMI, SVT and multiple other medical issues. Evaluated by cardiology. underwent cardiac catheterization, reporting non-obstructive CAD, possible takotsubo syndrome,-patient recently lost his mother. Abnormal troponins related to most likely stress cardiomyopathy not [place] as per cardiology. Tolerated procedure well, medications adjusted. D-dimer negative. Denies chest pain, palpitations or increasing shortness of breath. 09/28/2018 and pending in hallways, tolerated exertion well. Denies chest pain , palpitations or increasing shortness of breath. Denies lightheadedness dizziness or focal deficits. Further med adjustments as per cardiology. Objective - Vital Signs Vital signs: Vital Signs Temp 98.1 F 09/28/18 15:44 Pulse 83 09/28/18 15:44 Resp 18 09/28/18 15:44 BP 118/75 09/28/18 15:44 Pulse Ox 95 09/28/18 15:44 Intake & Output 09/28/18 09/28/18 09/29/18 06:59 18:59 06:59 Intake Total 20 684 Output Total 0 Balance 20 684 Weight 101.7 kg Intake: IV 20 0.9 20 Oral 684 Output: Urine 0 Other: Voiding Method Toilet # Voids 1 - Exam PHYSICAL EXAM: VITAL SIGNS: As above GENERAL: Sitting up in chair,, no acute distress HEENT: Conjunctivae normal. eyes normal. Oral mucosa moist NECK: No JVD. No thyroid enlargement. No LNs CARDIOVASCULAR: S1, S2 muffled. No murmur RESPIRATION: Breath sounds diminished in the bases. No rhonchi or crackles. No bronchial breathing. ABDOMEN: Soft, nontender . No guarding. no masses palpable. Bowel sounds heard. SKIN:: No edema. no swelling , Left hand , 2nd digit tender, inflamed PSYCHIATRY: Alert and oriented -3, mood and affect normal. NERVOUS SYSTEM: Cranial N 2-12 grossly normal. Moves all 4 limbs. No focal deficits. Skin: no ulcer no rash - Labs CBC & Chem 7: 09/28/18 06:12 09/28/18 06:12 Labs: Abnormal Lab Results - Last 24 Hours (Table) 09/28/18 09/28/18 Range/Units 06:12 06:12 WBC 12.8 H (3.8-10.6) k/uL Neutrophils # 10.5 H (1.3-7.7) k/uL Glucose 119 H (74-99) mg/dL Assessment and Plan Assessment: -Chest pain, possible acute non-STEMI, SVT. Status post cardiac catheterization , reporting non-obstructive CAD, possible takotsubo syndrome,-patient recently lost his mother. Abnormal troponins related to most likely stress cardiomyopathy not [place] as per cardiology. -Hypertension -Nicotine dependence, history of -left hand, 2nd digit cellulitis Plan: Continue current medication regime ,monitoring and symptomatic treatment. Further medication adjustment as per cardiology. Close monitoring overnight. Keflex admitted for finger inflammation/cellulitis Abstinence of alcohol reinforced increase activity as tolerated. Discharge planning in progress for tomorrow pending cardiology clearance. Further recommendations to follow. The impression and plan of care has been dictated as directed. : I performed a history and examination of this patient, discussed the same with the dictator. I agree with the dictator's note ,documented as a scribe. Any additional findings or plans will be noted.
[2018-09-28] MEDS: CEPHALEXIN 500 MG CAP PO SCH (23:29)
[2018-09-29] MEDS: PANTOPRAZOLE 40 MG TABLET PO SCH (06:34)
[2018-09-29] MEDS: CEPHALEXIN 500 MG CAP PO SCH ×2 (06:34→11:57)
[2018-09-29 06:43] LABS: Basophils # (A) 0.1 k/uL (0-0.2); Basophils % (A) 0 %; Eosinophils # (A) 0.3 k/uL (0-0.7); Eosinophils % (A) 2 %; HGB 15.8 gm/dL (13.0-17.5); Lymphocytes # (A) 1.5 k/uL (1.0-4.8); Lymphocytes % (A) 13 %; MCH 31.3 pg (25.0-35.0); MCV 94.9 fL (80.0-100.0); Mean Platelet Volume 7.5; Monocytes # (A) 0.7 k/uL (0-1.0); Monocytes % (A) 6 %; Neutrophils # (A) 9.4 k/uL (1.3-7.7); Neutrophils % (A) 77 %; Platelet Count 208 k/uL (150-450); RBC 5.05 m/uL (4.30-5.90); RDW 12.4 % (11.5-15.5); WBC 12.2 k/uL (3.8-10.6)
[2018-09-29 06:50] LABS: Anion Gap 7 mmol/L; Blood Urea Nitrogen 13 mg/dL (9-20); Calcium 9.1 mg/dL (8.4-10.2); Carbon Dioxide 29 mmol/L (22-30); Chloride 106 mmol/L (98-107); Glucose 108 mg/dL (74-99); Potassium 4.5 mmol/L (3.5-5.1); Sodium 142 mmol/L (137-145)
[2018-09-29] MEDS: SPIRONOLACTONE 25 MG TAB PO SCH (08:00)
[2018-09-29] MEDS: ATORVASTATIN 20 MG TAB PO SCH (08:00)
[2018-09-29] MEDS: ASPIRIN 81 MG PO SCH (08:00)
[2018-09-29] MEDS: METOPROLOL SUCCINATE (ER) 50 MG TAB.ER.24H PO SCH (08:00)
[2018-09-29 09:45] VITALS: RESP 18
[2018-09-29 12:06] VITALS: BP 122/69; PULSE 91; TEMP 97.3
--- NOTE | 2018-09-29 15:12 | P.PN ---
Subjective Progress Note Date: 09/29/18 53-year-old gentleman who presented to the hospital with chest discomfort, he was found to have SVT on admission here, abnormal troponins, for this reason he was taken to the cardiac catheterization lab. Patient was found to have minimal plaque in the proximal LAD, circumflex and RCA were normal. Left ventriculography revealed extensive anterior apical and inferior apical hypokinesia suggestive of possible takotsubo syndrome. was seen and examined this morning, he feels well, he's been up ambulating without any difficulty. Denies any chest discomfort and breathing has been stable. From our perspective he may be able to be discharged home to follow-up with Dr. Patel in the office post discharge. Objective - Vital Signs Vital signs: Vital Signs Temp 97.3 F L 09/29/18 12:00 Pulse 91 09/29/18 12:00 Resp 18 09/29/18 12:00 BP 122/69 09/29/18 12:00 Pulse Ox 95 09/29/18 12:00 Intake & Output 09/28/18 09/29/18 09/29/18 18:59 06:59 18:59 Intake Total 684 550 600 Balance 684 550 600 Intake: Oral 684 550 600 Other: # Voids 1 - Exam PHYSICAL EXAMINATION: GENERAL: 53-year-old gentleman in no acute distress at the time of my examination HEENT: Head is atraumatic, normocephalic. Pupils equal, round. Sclera anicteric. Conjunctiva are clear. Mucous membranes of the mouth are moist. Neck is supple. There is no elevated jugular venous pressure.] bruit is heard. HEART EXAMINATION: Heart S1, S2 normal. No murmur or gallop heard. CHEST EXAMINATION: Lungs are clear to auscultation and precussion. No chest wall tenderness is noted on palpation or with deep breathing. ABDOMEN: Soft, nontender. Bowel sounds are heard. No organomegaly noted. EXTREMITIES: 2+ peripheral pulses with no evidence of peripheral edema and no calf tenderness noted. NEUROLOGIC patient is awake, alert and oriented ?-3. . 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 Plan Patient able to be discharged home today from cardiology's perspective, we'll make a follow-up appointment for the patient to see Dr. Soriano in the office post discharge. DNP note has been reviewed, I agree with a documented findings and plan of care. Patient was seen and examined.
--- NOTE | 2018-09-30 10:46 | DS ---
DISCHARGE SUMMARY FINAL DIAGNOSES: 1. Chest pain, status post cardiac catheterization, possibly takotsubo syndrome with nonobstructive coronary artery disease status post cardiac catheterization. 2. Hypertension. 3. History of nicotine dependence. 4. Left hand secondary cellulitis. DISCHARGE CONDITION: The patient is being discharged in stable condition with guarded prognosis. HISTORY: This 53-year-old gentleman with past medical history as mentioned was admitted with chest pain. Troponin elevated. The patient underwent cardiac catheterization. The cardiac catheterization showed only nonobstructive coronary disease but features of stress-induced cardiomyopathy. Patient also reports significant stress associated with the passing of his mother. The patient was treated symptomatically. Cardiology saw the patient. On examination, vital signs stable. Cardiovascular, S1, S2. Abdomen soft. Nervous system, no focal deficits. The patient was also treated with some antibiotics for finger cellulitis. Patient improved significantly. The patient will be discharged in a stable with guarded prognosis. DISCHARGE INSTRUCTIONS: 1. Diet is cardiac. 2. Activity limited. FOLLOWUP: 1. Follow up with Dr. Schmid in 2 to 3 days. 2. Follow up with Dr. Soriano of Cardiology as recommended. DISCHARGE MEDICATIONS: 1. Vitamin C 1000 mg daily. 2. Aspirin 81 mg. 3. Lisinopril/hydrochlorothiazide 10/12.5 mg daily. 4. Lipitor 20 mg p.o. daily. 5. Keflex 500 mg q.i.d. for 3 days. 6. Toprol-XL 50 mg daily. 7. Nitrostat 0.4 mg p.o. daily. 8. Aldactone 25 mg p.o. daily. Once again, the patient will be discharged in stable condition with guarded prognosis. MMODL / IJN: [id number] /
== END 2018-09-29 16:03 | disposition home or self-care (01) | DRG 287 ==
LOC: EC 12:25 → 3SCARD 14:27
PROVIDERS: ADMIT Internal Medicine; ATTEND Internal Medicine
PROC: B2111ZZ Fluoroscopy of Multiple Coronary Arteries using Low Osmolar Contrast (ICD-10-PCS; 2018-09-27)
PROC: B2151ZZ Fluoroscopy of Left Heart using Low Osmolar Contrast (ICD-10-PCS; 2018-09-27)
PROC: 4A023N7 Measurement of Cardiac Sampling and Pressure, Left Heart, Percutaneous Approach (ICD-10-PCS; principal; 2018-09-27 10:45)
DX: I51.81 Takotsubo syndrome (principal); I47.1 Supraventricular tachycardia; I25.10 Atherosclerotic heart disease of native coronary artery without angina pectoris; Z87.891 Personal history of nicotine dependence; I10 Essential (primary) hypertension; I49.3 Ventricular premature depolarization; L03.012 Cellulitis of left finger; Z79.82 Long term (current) use of aspirin; Z79.899 Other long term (current) drug therapy; Z82.49 Family history of ischemic heart disease and other diseases of the circulatory system; Z85.828 Personal history of other malignant neoplasm of skin; Z86.711 Personal history of pulmonary embolism; Z86.718 Personal history of other venous thrombosis and embolism; Z90.49 Acquired absence of other specified parts of digestive tract; Z80.41 Family history of malignant neoplasm of ovary; Z63.4 Disappearance and death of family member; R74.8 Abnormal levels of other serum enzymes
CPT/HCPCS: 36415; 71046; 80048; 80053; 80061; 82550; 82553; 83735; 83880; 84443; 84484; 85025; 85379; 85610; 85730; 93005; 93306; 93458; 96365; 96366; 96375; 96376; 99285

== ENCOUNTER 2019-04-09 10:57 | Day surgery (SDC) | payer BC ==
[~2019-04-09 10:57] MED LIST changes: +LACTATED RINGERS 1,000 ML IV SCH; +LIDOCAINE 1% 20 ML VIAL (10MG/ML) FOR IV START INTRADERMA PRN; -REGADENOSON 0.4 MG/5 ML SYRINGE IV ONE; +SODIUM CHLORIDE 0.9% 1,000 ML IV SCH
[2019-04-09 12:28] LABS: African American GFR (CKD) >90 (>60 ml/min/1.73 sqM); Anion Gap 8 mmol/L; Blood Urea Nitrogen 13 mg/dL (9-20); Carbon Dioxide 23 mmol/L (22-30); Chloride 109 mmol/L (98-107); Glucose 90 mg/dL (74-99); Potassium 4.4 mmol/L (3.5-5.1); Sodium 140 mmol/L (137-145)
[2019-04-09 12:44] LABS: Basophils % (A) 1 %; Eosinophils # (A) 0.2 k/uL (0-0.7); Eosinophils % (A) 3 %; HCT 47.9 % (39.0-53.0); HGB 16.2 gm/dL (13.0-17.5); Lymphocytes # (A) 1.6 k/uL (1.0-4.8); Lymphocytes % (A) 24 %; MCH 30.9 pg (25.0-35.0); MCHC 33.8 g/dL (31.0-37.0); MCV 91.2 fL (80.0-100.0); Monocytes # (A) 0.4 k/uL (0-1.0); Monocytes % (A) 5 %; Neutrophils # (A) 4.4 k/uL (1.3-7.7); Neutrophils % (A) 65 %; Platelet Count 213 k/uL (150-450); RBC 5.25 m/uL (4.30-5.90); RDW 14.1 % (11.5-15.5); WBC 6.8 k/uL (3.8-10.6)
[2019-04-09] MEDS ORDERED: ROCURONIUM BROMIDE 10 MG/ML 10 ML VIAL IV ONE (13:25)
[2019-04-09] MEDS ORDERED: NEOSTIGMINE 1 MG/ML 10 ML VIAL ONE (13:25)
[2019-04-09] MEDS ORDERED: MIDAZOLAM 2 MG/2 ML VIAL ONE (13:25)
[2019-04-09] MEDS ORDERED: KETAMINE 10 MG/ML 20 ML VIAL ONE (13:25)
[2019-04-09] MEDS ORDERED: ISOPROTERENOL 250 MCG/1.25 ML SYR IV ONE (13:25)
[2019-04-09] MEDS ORDERED: PROPOFOL 10 MG/ML 20 ML VIAL IV ONE (13:25)
[2019-04-09] MEDS ORDERED: GLYCOPYRROLATE 0.2 MG/ML 2 ML VIAL ONE (13:25)
[2019-04-09] MEDS ORDERED: SUCCINYLCHOLINE CHLORIDE 100 MG/5 ML SYR IV ONE (13:25)
[2019-04-09] MEDS ORDERED: SODIUM CHLORIDE 0.9% 1,000 ML IV ONE (13:29)
[2019-04-09] MEDS ORDERED: LIDOCAINE 1% INJ 10MG/ML (20 ML MDV) ONE ×2 (13:40→14:28)
[2019-04-09] MEDS ORDERED: LIDOCAINE 1% INJ 10MG/ML (20 ML MDV) SQ ONE ×2 (14:07)
[2019-04-09] MEDS ORDERED: ACETAMINOPHEN TAB 325 MG TAB PO PRN (17:01)
[2019-04-09] MEDS ORDERED: HYDROcodone/APAP 5-325MG 1 EACH TAB PO PRN (17:01)
[2019-04-09] MEDS ORDERED: ACETAMINOPHEN IV (For NPO) 1,000 MG in EMPTY BAG 1 BAG IVPB ONE (18:00)
--- NOTE | 2019-04-09 22:16 | PCN ---
PROCEDURE NOTE Mr. Beau Hoover is a 54-year-old male patient who has supraventricular tachycardia, adenosine-sensitive. He also has tachycardia cardiomyopathy. He was brought in for a diagnostic EP study and radiofrequency ablation. Patient was brought to the EP lab in a fasting state. Written informed consent was obtained prior to the procedure. The right and left groins were prepped and draped as per protocol. Venous sheaths were placed in the right and left femoral veins. Via these, diagnostic catheters were placed in the right heart (high right atrial catheter, His bundle catheter, RV and coronary sinus catheters). The baseline measurements were as follows: Sinus cycle length 66 milliseconds, PA interval 119 milliseconds, QRS 33 milliseconds, QT 361 milliseconds. Baseline AH interval 95 milliseconds with baseline HV interval 26 milliseconds. Sinus node recovery times at 600, 500 and 400 milliseconds were 963, 945 and 862 milliseconds, respectively. Corresponding corrected sinus node recovery times were within normal limits. There was no evidence of slow pathway conduction. No delta waves were noted. The AV node Wenckebach block was 350 milliseconds, VA Wenckebach block 380 milliseconds. The retrograde conduction was midline and decremental. With straight pacing from the ventricle, SVT was induced. SVT had a short septal time of less than 60 milliseconds with ventricular pacing for entrainment, tachycardia terminated. Isuprel was then started. A full EP study was performed with high right atrial pacing, CS pacing and RV pacing, but SVT could not be induced on Isuprel. Therefore a decision was made to proceed with slow pathway ablation for the management of AV luciana reentry. The tachycardia began with a jump in the AH interval with short septal times. During ventricular pacing, there was evidence of AV dissociation. Isuprel was stopped. A long sheath was placed. A 4 mm RF ablation catheter was placed. Three-dimensional electroanatomic mapping was performed. The slow pathway was mapped. His bundle cloud was mapped. His cloud was mapped. The coronary sinus was mapped. RF ablation was performed outside the coronary sinus, but successful ablation was finally achieved at the mouth of the coronary sinus and in the floor of the coronary sinus, just about 0.5 cm inside it. Thereafter, SVT could not be induced, both off Isuprel as well as on Isuprel and during the washout phase with either atrial or ventricular stimulation. The patient tolerated the procedure well without any acute complications. All catheters were then removed and the patient was transferred back to telemetry. RESULT: 1. Diagnostic EP study revealing AV luciana re-entry as a mechanism of the tachycardia. 2. Successful mapping and ablation of the slow pathway and elimination of the slow pathway with non-inducible at the end of the procedure. No other arrhythmias induced. PLAN: Plan continue beta blockers. Continue cardiomyopathy medications. I will reassess his LV function in 3 months once again. BRE / MAURO: [id number] /
--- NOTE | 2019-04-09 22:22 | PCN ---
PROCEDURE NOTE April 09, 2019 To: Dr. Kelby Schmid Re: Beau Rodarterey Dear Carlos, I had the pleasure of seeing Mr. Beau Hoover in electrophysiology followup. Mr. Hoover underwent a diagnostic EP study which showed inducible AV luciana reentrant tachycardia. He underwent successful ablation of the tachycardia without any acute complications. I will continue his cardiomyopathy medication, including beta blockers, since he did have nonischemic cardiomyopathy, likely stress cardiomyopathy. Thank you for entrusting us with the care of your patient. Warm regards. Sincerely, Cirilo Soriano M.D. BRE / MAURO: [id number] /
[2019-04-10 07:35] VITALS: RESP 16
[2019-04-10] MEDS ORDERED: LISINOPRIL-HCTZ 10-12.5 MG 1 EACH TAB PO SCH (09:00)
[2019-04-10] MEDS ORDERED: ASPIRIN 81 MG PO SCH (09:00)
[2019-04-10] MEDS ORDERED: ATORVASTATIN 20 MG TAB PO SCH (09:00)
[2019-04-10] MEDS ORDERED: METOPROLOL SUCCINATE (ER) 50 MG TAB.ER.24H PO SCH (09:00)
[2019-04-10 12:09] VITALS: BP 121/78; PULSE 81; TEMP 98.6
--- NOTE | 2019-04-10 12:25 | P.DS ---
Providers Attending physician: Cirilo Soriano Primary care physician: [facility] Course: Patient is doing well. He is ablating in the hallways. No chest discomfort dizziness lightheadedness. 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 Tachycardia rendered noninducible at the end of the procedure Suggest Continue current medications for cardio myopathy without any changes and follow- up in the office within 1-2 weeks I will reassess his LV function about 3 months Patient Condition at Discharge: Stable Plan - Discharge Summary Discharge Rx Participant: No New Discharge Prescriptions: Continue Lisinopril/Hydrochlorothiazide [Lisinopril-Hctz 10-12.5 mg Tab] 1 tab PO QAM Aspirin 81 mg PO DAILY Ascorbic Acid [Vitamin C] 1,000 mg PO DAILY Nitroglycerin Sl Tabs [Nitrostat] 0.4 mg SUBLINGUAL Q5M PRN #20 tab PRN Reason: Chest Pain Atorvastatin [Lipitor] 20 mg PO QAM Metoprolol Succinate (ER) [Toprol XL] 50 mg PO QAM Discharge Medication List Lisinopril/Hydrochlorothiazide [Lisinopril-Hctz 10-12.5 mg Tab] 1 tab PO QAM 09/08/15 [History] Aspirin 81 mg PO DAILY 07/04/17 [History] Ascorbic Acid [Vitamin C] 1,000 mg PO DAILY 09/26/18 [History] Nitroglycerin Sl Tabs [Nitrostat] 0.4 mg SUBLINGUAL Q5M PRN #20 tab 09/29/18 [Rx] Atorvastatin [Lipitor] 20 mg PO QAM 04/05/19 [History] Metoprolol Succinate (ER) [Toprol XL] 50 mg PO QAM 04/05/19 [History] Follow up Appointment(s)/Referral(s): Cirilo Soriano MD [STAFF PHYSICIAN] - 2 Weeks (Follow-up with Dr. Soriano/Yoko Brian/Jemima Lawton Continue beta blockers Follow-up with Dr. Domingo in 2-3 months again) Activity/Diet/Wound Care/Special Instructions: Post EP study - Ablation instructions 1. Keep access sites dry for 2 days. 2. No heavy lifting or straining for 2 days. 3. Avoid bending the hips repeatedly for 2 days. 4. You may go up and down stairs slowly Call if the following is noted 1. Bleeding, increasing swelling or pain at the access sites. 2. Increasing chest discomfort, especially upon taking a deep breath. 3. Increasing shortness of breath, at rest or with exertion. 4. Undue cough / phlegm 5. Difficulty or pain while swallowing. 6. Pain or change in color in the extremities. 7. Fever, chills, rigors. 8. Increasing headache or neurologic symptoms. 9. Dizziness, fainting, palpitations No changes in medications Follow-up with Dr. Soriano/Yoko Brian/Jemima Lawton Follow once again Dr. Domingo about 2-3 months
--- NOTE | 2019-04-10 12:29 | P.PRLE ---
RE: Beau Hoover Dear Carlos Mr. Hoover underwent successful. 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
== END 2019-04-10 13:35 ==
LOC: CATHEP 10:57 → 1SOBS 16:38 → CATHEP 04-10 13:35
PROVIDERS: ATTEND Internal Medicine Clinical Cardiac Electrophysiology
DX: I47.1 Supraventricular tachycardia (principal); I11.9 Hypertensive heart disease without heart failure; I25.10 Atherosclerotic heart disease of native coronary artery without angina pectoris; E78.5 Hyperlipidemia, unspecified; I73.9 Peripheral vascular disease, unspecified; Z79.82 Long term (current) use of aspirin; Z79.899 Other long term (current) drug therapy; Z87.891 Personal history of nicotine dependence
CPT/HCPCS: 93623; 93613; 93653; 80048; 85025; C1894; C1769 ×2; C1730 ×2; C1732; C1893; J2250; J2710; J2001; J0131; J0330; J2704

== ENCOUNTER 2020-08-03 10:34 | Emergency (ER) | payer BC ==
[2020-08-03] MEDS ORDERED: SODIUM CHLORIDE 0.9% 1,000 ML IV STA (10:52)
--- NOTE | 2020-08-03 11:15 | ED ---
Arrhythmia/Palpitations HPI - General Chief Complaint: Arrhythmia/Palpitations Stated Complaint: High heart rate Time Seen by Provider: 08/03/20 10:48 Source: patient, family, RN notes reviewed Mode of arrival: ambulatory Limitations: no limitations - History of Present Illness Initial Comments: 55-year-old male presents emergency Department with chief complaint of headache, lower abdominal pain,elevated heart rate. Patient states that he went to [facility] complaints not been feeling well over the last few days states been achy, headache and lower abdominal mild pain. Patient states that he had a negative covid test at [facility]. Patient states that he does have a history of SVT. Patient states he has no chest pain he did feel like his heart was racing earlier. Isn't went to shortness of breath no known fever no neck pain or neck stiffness. He states his headache is been the worse headache he's ever had bili did take some sinus and cold meds which seemed to help but today. Patient states he takes aspirin no otherblood thinners noted. Patient denies any diarrhea, constipation, melena hematochezia. Patient has no dysuria no hem aturia no history kidney stones. - Related Data Home Medications Medication Instructions Recorded Confirmed Atorvastatin [Lipitor] 20 mg PO DAILY 04/05/19 08/03/20 Metoprolol Succinate (ER) [Toprol 50 mg PO DAILY 04/05/19 08/03/20 XL] Ascorbic Acid [Vitamin C] 500 mg PO DAILY 08/03/20 08/03/20 Aspirin EC [Ecotrin Low Dose] 81 mg PO DAILY 08/03/20 08/03/20 Lisinopril [Prinivil] 10 mg PO DAILY 08/03/20 08/03/20 Previous Rx's Medication Instructions Recorded Ciprofloxacin HCl [Cipro] 500 mg PO Q12HR #14 tablet 08/03/20 Allergies Allergy/AdvReac Type Severity Reaction Status Date / Time No Known Allergies Allergy Verified 08/03/20 12:31 Review of Systems ROS Statement: Those systems with pertinent positive or pertinent negative responses have been documented in the HPI. ROS Other: All systems not noted in ROS Statement are negative. Past Medical History Past Medical History: Cancer, Deep Vein Thrombosis (DVT), Hypertension, Pulmonary Embolus (PE) Additional Past Medical History / Comment(s): CARDIOVASCULAR HISTORY BY DR. LOYD. HX skin cancer, diverticulitis. BLEEDING FROM HEMORRHOIDS CAUSED ANEMIA WHICH REQUIRED BLOOD ANEMIA. History of Any Multi-Drug Resistant Organisms: None Reported Past Surgical History: Cholecystectomy, Hernia Repair Additional Past Surgical History / Comment(s): LESION -SKIN CANCER. Hemorrhoidectomy Past Anesthesia/Blood Transfusion Reactions: No Reported Reaction Additional Past Anesthesia/Blood Transfusion Reaction / Comment(s): Blood transfusions in past-no reaction (HEMORRHOIDS) Past Psychological History: No Psychological Hx Reported Smoking Status: Never smoker Past Alcohol Use History: Daily Past Drug Use History: Marijuana - Past Family History Mother Family Medical History: Cancer Additional Family Medical History / Comment(s): OVARIAN General Exam Limitations: no limitations General appearance: alert, in no apparent distress Head exam: Present: atraumatic, normocephalic, normal inspection Eye exam: Present: normal appearance, PERRL, EOMI. Absent: scleral icterus, conjunctival injection, periorbital swelling ENT exam: Present: normal exam, normal oropharynx, mucous membranes moist, TM's normal bilaterally Neck exam: Present: normal inspection, full ROM. Absent: tenderness, meningismus, lymphadenopathy Respiratory exam: Present: normal lung sounds bilaterally. Absent: respiratory distress, wheezes, rales, rhonchi, stridor Cardiovascular Exam: Present: normal rhythm, tachycardia, normal heart sounds. Absent: systolic murmur, diastolic murmur, rubs, gallop, clicks GI/Abdominal exam: Present: soft, normal bowel sounds. Absent: distended, tenderness, guarding, rebound, rigid Back exam: Absent: CVA tenderness (R), CVA tenderness (L) Neurological exam: Present: alert, oriented X3 Skin exam: Present: warm, dry, intact, normal color. Absent: rash Course Vital Signs 08/03/20 08/03/20 08/03/20 10:38 11:17 11:59 Temperature 97.4 F L 97.6 F Pulse Rate 117 H 100 Pulse Rate [ 110 H [employer] ] Respiratory 18 14 Rate Blood Pressure 128/81 146/92 O2 Sat by Pulse 97 99 Oximetry EKG Findings - EKG Comments: EKG Findings:: EKG performed at 11:07 sinus tachycardia rate of 108 [place] 162 QRS 1 08 QT/QTC 338/452 Medical Decision Making - Medical Decision Making 55-year-old male presented from for multiple complaints. Patient from a compl aint going to urgent care with headache. CT of the brain does not show any major abnormality's headache has resolved. He is neurologically intact. Patient has no neck pain or neck stiffness. Upon further workup patient does have mild hyperglycemia no history states he did eat some cereal prior arrival. Patient advised to have his blood sugar rechecked with his PCP. Patient's urinalysis reveals hematuria and has mild leukocytosis. Patient has no pain consistent with kidney stone. Patient treated for infection that he's had prior urinary tract infections. Patient given Rocephin upon discharge. Patient advised to have recheck of his urinalysis with PCP and neurologist. Patient's heart rate was sinus tach on initial exam, patient has heart rate in the 90s. Patient we discharged in stable condition. - Lab Data Result diagrams: 08/03/20 11:07 08/03/20 11:07 Lab Results 08/03/20 08/03/20 08/03/20 Range/Units 11:07 11:07 11:07 WBC 13.4 H (3.8-10.6) k/uL RBC 5.26 (4.30-5.90) m/uL Hgb 16.8 (13.0-17.5) gm/dL Hct 49.2 (39.0-53.0) % MCV 93.4 (80.0-100.0) fL MCH 31.9 (25.0-35.0) pg MCHC 34.2 (31.0-37.0) g/dL RDW 11.6 (11.5-15.5) % Plt Count 170 (150-450) k/uL Neutrophils % 92 % Lymphocytes % 3 % Monocytes % 3 % Eosinophils % 1 % Basophils % 1 % Neutrophils # 12.4 H (1.3-7.7) k/uL Lymphocytes # 0.4 L (1.0-4.8) k/uL Monocytes # 0.4 (0-1.0) k/uL Eosinophils # 0.1 (0-0.7) k/uL Basophils # 0.1 (0-0.2) k/uL PT 10.5 (9.0-12.0) sec INR 1.0 (<1.2) APTT 24.4 (22.0-30.0) sec D-Dimer 0.53 (<0.60) mg/L FEU Sodium (137-145) mmol/L Potassium (3.5-5.1) mmol/L Chloride (98-107) mmol/L Carbon Dioxide (22-30) mmol/L Anion Gap mmol/L BUN (9-20) mg/dL Creatinine (0.66-1.25) mg/dL Est GFR (CKD-EPI)AfAm (>60 ml/min/1.73 sqM) Est GFR (CKD-EPI)NonAf (>60 ml/min/1.73 sqM) Glucose (74-99) mg/dL Calcium (8.4-10.2) mg/dL Magnesium (1.6-2.3) mg/dL Total Bilirubin (0.2-1.3) mg/dL AST (17-59) U/L ALT (4-49) U/L Alkaline Phosphatase (38-126) U/L Troponin I (0.000-0.034) ng/mL Total Protein (6.3-8.2) g/dL Albumin (3.5-5.0) g/dL TSH (0.465-4.680) mIU/L Urine Color Yellow Urine Appearance Clear (Clear) Urine pH 6.5 (5.0-8.0) Ur Specific [place] 1.019 (1.001-1.035) Urine Protein Negative (Negative) Urine Glucose (UA) 3+ H (Negative) Urine Ketones Negative (Negative) Urine Blood Moderate H (Negative) Urine Nitrite Negative (Negative) Urine Bilirubin Negative (Negative) Urine Urobilinogen <2.0 (<2.0) mg/dL Ur Leukocyte Esterase Negative (Negative) Urine RBC 60 H (0-5) /hpf Urine WBC 1 (0-5) /hpf Urine Mucus Moderate H (None) /hpf Influenza Type A RNA (Not Detectd) Influenza Type B (PCR) (Not Detectd) 08/03/20 08/03/20 08/03/20 Range/Units 11:07 11:07 11:39 WBC (3.8-10.6) k/uL RBC (4.30-5.90) m/uL Hgb (13.0-17.5) gm/dL Hct (39.0-53.0) % MCV (80.0-100.0) fL MCH (25.0-35.0) pg MCHC (31.0-37.0) g/dL RDW (11.5-15.5) % Plt Count (150-450) k/uL Neutrophils % % Lymphocytes % % Monocytes % % Eosinophils % % Basophils % % Neutrophils # (1.3-7.7) k/uL Lymphocytes # (1.0-4.8) k/uL Monocytes # (0-1.0) k/uL Eosinophils # (0-0.7) k/uL Basophils # (0-0.2) k/uL PT (9.0-12.0) sec INR (<1.2) APTT (22.0-30.0) sec D-Dimer (<0.60) mg/L FEU Sodium 134 L (137-145) mmol/L Potassium 4.0 (3.5-5.1) mmol/L Chloride 100 (98-107) mmol/L Carbon Dioxide 27 (22-30) mmol/L Anion Gap 7 mmol/L BUN 14 (9-20) mg/dL Creatinine 0.94 (0.66-1.25) mg/dL Est GFR (CKD-EPI)AfAm >90 (>60 ml/min/1.73 sqM) Est GFR (CKD-EPI)NonAf >90 (>60 ml/min/1.73 sqM) Glucose 231 H (74-99) mg/dL Calcium 8.8 (8.4-10.2) mg/dL Magnesium 2.0 (1.6-2.3) mg/dL Total Bilirubin 0.8 (0.2-1.3) mg/dL AST 31 (17-59) U/L ALT 28 (4-49) U/L Alkaline Phosphatase 78 (38-126) U/L Troponin I <0.012 (0.000-0.034) ng/mL Total Protein 6.4 (6.3-8.2) g/dL Albumin 3.8 (3.5-5.0) g/dL TSH 1.060 (0.465-4.680) mIU/L Urine Color Urine Appearance (Clear) Urine pH (5.0-8.0) Ur Specific [place] (1.001-1.035) Urine Protein (Negative) Urine Glucose (UA) (Negative) Urine Ketones (Negative) Urine Blood (Negative) Urine Nitrite (Negative) Urine Bilirubin (Negative) Urine Urobilinogen (<2.0) mg/dL Ur Leukocyte Esterase (Negative) Urine RBC (0-5) /hpf Urine WBC (0-5) /hpf Urine Mucus (None) /hpf Influenza Type A RNA Not Detected (Not Detectd) Influenza Type B (PCR) Not Detected (Not Detectd) Disposition Clinical Impression: UTI (urinary tract infection), Hematuria, Hyperglycemia Disposition: HOME SELF-CARE Condition: Stable Instructions (If sedation given, give patient instructions): Urinary Tract Infection in Men (ED) Additional Instructions: Please return to the Emergency Department if symptoms worsen or any other concerns. Prescriptions: Ciprofloxacin HCl [Cipro] 500 mg PO Q12HR #14 tablet Is patient prescribed a controlled substance at d/c from ED?: No Referrals: Anand Schmid MD [Primary Care Provider] - 1-2 days Justin Dupont MD [STAFF PHYSICIAN] - 1-2 days Time of Disposition: 14:14
[2020-08-03 11:48] LABS: ALT 28 U/L (4-49); AST 31 U/L (17-59); African American GFR (CKD) >90 (>60 ml/min/1.73 sqM); Albumin 3.8 g/dL (3.5-5.0); Alkaline Phosphatase 78 U/L (38-126); Anion Gap 7 mmol/L; Blood Urea Nitrogen 14 mg/dL (9-20); Calcium 8.8 mg/dL (8.4-10.2); Carbon Dioxide 27 mmol/L (22-30); Chloride 100 mmol/L (98-107); Glucose 231 mg/dL (74-99); Non-African American GFR(CKD) >90 (>60 ml/min/1.73 sqM); Sodium 134 mmol/L (137-145); Total Bilirubin 0.8 mg/dL (0.2-1.3); Total Protein 6.4 g/dL (6.3-8.2)
[2020-08-03 11:51] LABS: Basophils # (A) 0.1 k/uL (0-0.2); Basophils % (A) 1 %; Eosinophils # (A) 0.1 k/uL (0-0.7); Eosinophils % (A) 1 %; HCT 49.2 % (39.0-53.0); HGB 16.8 gm/dL (13.0-17.5); Lymphocytes # (A) 0.4 k/uL (1.0-4.8); Lymphocytes % (A) 3 %; MCH 31.9 pg (25.0-35.0); MCHC 34.2 g/dL (31.0-37.0); MCV 93.4 fL (80.0-100.0); Mean Platelet Volume 7.9; Monocytes # (A) 0.4 k/uL (0-1.0); Monocytes % (A) 3 %; Neutrophils # (A) 12.4 k/uL (1.3-7.7); Neutrophils % (A) 92 %; Platelet Count 170 k/uL (150-450); RBC 5.26 m/uL (4.30-5.90); RDW 11.6 % (11.5-15.5); WBC 13.4 k/uL (3.8-10.6)
[2020-08-03 11:56] LABS: D-Dimer 0.53 mg/L FEU (<0.60); Partial Thromboplastin Time 24.4 sec (22.0-30.0); Prothrombin Time 10.5 sec (9.0-12.0)
--- NOTE | 2020-08-03 11:59 | CT ---
EXAMINATION TYPE: CT brain wo con DATE OF EXAM: 08/03/2020 COMPARISON: None HISTORY: headache CT DLP: 1099.4 mGycm Automated exposure control for dose reduction was used. Helical imaging through the brain FINDINGS: There is no hemorrhage or hydrocephalus. Calvarium is intact. Paranasal sinuses and mastoid air cells are well aerated. Orbits show symmetric appearance. Low-attenuation is present in the basal ganglia on the right which may represent lacunar infarct. Periventricular white matter shows patchy low atten uation. IMPRESSION: SUSPECT CHRONIC SMALL VESSEL ISCHEMIC CHANGES, BRAIN MRI MAY BE OF BENEFIT
--- NOTE | 2020-08-03 12:06 | XR ---
EXAMINATION TYPE: XR chest 2V DATE OF EXAM: 08/03/2020 COMPARISON: Prior chest x-ray 09/26/2018, CT 09/07/2012 HISTORY: Dysrhythmia, tachycardia TECHNIQUE: Frontal and lateral views of the chest are obtained. FINDINGS: There is no focal air space opacity, pleural effusion, or pneumothorax seen. The cardiac silhouette size is table. There is eventration of the right hemidiaphragm as on prior exam. Patient is rotated. Surgical clips are present in the right upper quadrant. The osseous structures are intact . IMPRESSION: No acute cardiopulmonary process.
[2020-08-03 13:51] LABS: Appearance,Urine Clear (Clear); Bilirubin,Urine Negative (Negative); Blood,Urine Moderate (Negative); Color,Urine Yellow; Glucose,Urine (UA) 3+ (Negative); Ketones,Urine Negative (Negative); Leukocyte Esterase,Urine Negative (Negative); Mucus,Urine Moderate /hpf; Nitrite,Urine Negative (Negative); PH, Urine 6.5 (5.0-8.0); Protein,Urine Negative (Negative); RBC,Urine 60 /hpf (0-5); Specific Gravity,Urine 1.019 (1.001-1.035); Urobilinogen,Urine <2.0 mg/dL (<2.0); WBC,Urine 1 /hpf (0-5)
[2020-08-03] MEDS ORDERED: cefTRIAXone IN SWFI 1,000 MG/10 ML SYRINGE IVP STA (14:15)
[2020-08-03 14:57] VITALS: BP 123/88; PULSE 90; RESP 16; TEMP 98.1
== END 2020-08-03 14:30 | disposition home or self-care (01) ==
LOC: EC 10:34
DX: N39.0 Urinary tract infection, site not specified (principal); R31.9 Hematuria, unspecified; R73.9 Hyperglycemia, unspecified; D72.829 Elevated white blood cell count, unspecified; I10 Essential (primary) hypertension; Z79.899 Other long term (current) drug therapy; Z79.82 Long term (current) use of aspirin; Z90.49 Acquired absence of other specified parts of digestive tract; Z86.718 Personal history of other venous thrombosis and embolism; Z85.828 Personal history of other malignant neoplasm of skin; Z86.711 Personal history of pulmonary embolism
CPT/HCPCS: 36415; 93005; 85379; 80053; 84443; 83735; 84484; 85025; 85610; 85730; 81001; 87502; 71046; 70450; 99285; 96374; 96361; J0696

== ENCOUNTER → 2021-12-16 | Outpatient (CLI) | payer BC ==
--- NOTE | 2021-12-16 13:51 | CT ---
EXAMINATION TYPE: CT abdomen pelvis w con DATE OF EXAM: 12/16/2021 COMPARISON: CT dated 09/07/2015 HISTORY: RLQ pain CT DLP: 1519 mGycm Automated exposure control for dose reduction was used. TECHNIQUE: Helical acquisition of images was performed from the lung bases through the pelvis. CONTRAST: Performed with Oral Contrast and with IV Contrast, patient injected with 100 ml mL of Isovue 300. FINDINGS: LUNG BASES: No significant abnormality is appreciated. LIVER/GB: Enlarged liver with hepatic steatosis. With this limitation, no definite hepatic focal lesi on identified. Previous cholecystectomy. PANCREAS: No significant abnormality is seen. SPLEEN: No significant abnormality is seen. ADRENALS: Markedly thin adrenals without definite lesion. KIDNEYS: Tiny left renal cyst, with 3 mm nonobstructing calculus at the lower pole of the left kidney . Tiny cyst seen at the upper pole of the right kidney, otherwise unremarkable kidneys. FREE AIR: No free air is visualized. RETROPERITONEAL ADENOPATHY: None visualized REPRODUCTIVE ORGANS: No significant abnormality is seen URINARY BLADDER: No significant abnormality is seen. PELVIC ADENOPATHY: None visualized. OSSEOUS STRUCTURES: Severe bilateral L4-5 and L5-S1 facet osteoarthropathy with grade 1 anterolisthe sis of L4 over L5. Upper endplate depression of L5 with about 40% height reduction, subtle sclerotic changes and a small bone fragment anteriorly without significant surrounding fat stranding or hematom a, likely chronic, please correlate clinically. This wasn't appreciated on the previous CT scan. Dege nerative changes of the hip joints more on the right side, as well as the sacroiliac joints. BOWEL: Unremarkable nondistended stomach, duodenum and small bowel. Scattered uncomplicated colonic diverticulosis. Fatty infiltration of the right hemicolonic wall, possibly related to chronic inflamm atory changes. Normal appendix. OTHER: Scattered arterial atherosclerotic calcifications. Unremarkable IVC. No sizable ascites. Small fat-containing right inguinal hernia. IMPRESSION: No acute small or large bowel abnormality identified. Normal appendix. Possible chronic inflammatory changes/chronic colitis involving the right hemicolon. 3 mm nonobstructing left renal calculus. Interval compression fracture and anterior wedging of L5 cornell tebral body as described above, likely chronic. Please correlate clinically. Other findings as detail ed above.
[2021-12-16 18:58] LABS: Basophils # (A) 0.08 X 10*3/uL (0.00-0.10); Basophils % (A) 0.8 %; Eosinophils # (A) 0.02 X 10*3/uL (0.04-0.35); Eosinophils % (A) 0.2 %; HCT 53.1 % (39.6-50.0); HGB 17.2 g/dL (13.0-17.0); Immature Grans, Automated 2.9 %; Lymphocytes # (A) 0.96 X 10*3/uL (0.90-5.00); Lymphocytes % (A) 9.5 %; MCH 31.4 pg (27.0-32.0); MCHC 32.4 g/dL (32.0-37.0); MCV 97.1 fL (80.0-97.0); Mean Platelet Volume 10.8 fL (9.5-12.2); Monocytes # (A) 0.38 X 10*3/uL (0.20-1.00); Monocytes % (A) 3.8 %; NRBC Per 100 WBC 0 /100 WBCS (0.0-0.0); Neutrophils # (A) 8.38 X 10*3/uL (1.80-7.70); Neutrophils % (A) 82.8 %; Platelet Count 276 X 10*3/uL (140-440); RBC 5.47 X 10*6/uL (4.40-5.60); WBC 10.11 X 10*3/uL (4.50-10.00)
[2021-12-16 20:17] LABS: African American GFR (CKD) 97.1 (60.0-200.0); Albumin 4.5 g/dL (3.8-4.9); Albumin/Globulin Ratio 2.2 (1.60-3.17); Anion Gap 12.2 mmol/L (10.00-18.00); BUN/Creat Ratio 12.1 Ratio (12.00-20.00); Blood Urea Nitrogen 12.1 mg/dL (9.0-27.0); Calcium 9.5 mg/dL (8.7-10.3); Carbon Dioxide 27.9 mmol/L (20.0-27.5); Non-African American GFR(CKD) 83.8 (60.0-200.0); Potassium 5.3 mmol/L (3.5-5.5); Total Bilirubin 0.6 mg/dL (0.30-1.20); Total Protein 6.5 g/dL (6.2-8.2)
== END | disposition home or self-care (01) ==
LOC: RADCTMAIN 11:24
PROVIDERS: ATTEND Family Medicine
DX: N20.0 Calculus of kidney (principal); M48.56XA Collapsed vertebra, not elsewhere classified, lumbar region, initial encounter for fracture
CPT/HCPCS: 80053; 85025; 74177; 36415; Q9967

== ENCOUNTER → 2023-11-08 | Outpatient (CLI) | payer BC ==
--- NOTE | 2023-11-08 13:33 | US ---
EXAMINATION TYPE: US venous doppler duplex LE LT DATE OF EXAM: 11/08/2023 1:15 PM COMPARISON: NONE CLINICAL INDICATION: Male, 58 years old with history of M79.605 PAIN IN LEFT LEG; HX DVT, SVT left le g SIDE PERFORMED: Left TECHNIQUE: The lower extremity deep venous system is examined utilizing real time linear array sonog ida with graded compression, doppler sonography and color-flow sonography. VESSELS IMAGED: Common Femoral Vein Deep Femoral Vein Greater Saphenous Vein * Femoral Vein Popliteal Vein Small Saphenous Vein * Proximal Calf Veins (* superficial vessels) Left Leg: Negative for acute DVT Pack Changer notes: There appears to be chronic DVT/ thickened garrett throughout, the patient's pain co rresponds to an area of edema at the lower posterior left calf with a thrombosed gastroc vein varicos ity IMPRESSION: 1. Some chronic, nonocclusive, mural-based DVT scattered throughout the left lower extremity. No acut e/occlusive left lower extremity DVT is identified down to the upper calf. 2. Additional scanning at the lower posterior calf at the site of patient's pain corresponds to SVT i nvolving a gastroc varicosity.
== END | disposition home or self-care (01) ==
LOC: RADUSWWP 12:30
PROVIDERS: ATTEND Family Medicine
DX: I47.10 Supraventricular tachycardia, unspecified (principal); I82.502 Chronic embolism and thrombosis of unspecified deep veins of left lower extremity; M79.605 Pain in left leg

== ENCOUNTER 2025-02-25 11:27 | Day surgery (SDC) | payer BC ==
[2025-02-24 12:16] VITALS: BMI 33.5
[~2025-02-25 11:27] MED LIST changes: -LACTATED RINGERS 1,000 ML IV SCH; +LIDOCAINE 1% (10MG/ML) FOR IV START INTRADERMA PRN; -LIDOCAINE 1% 20 ML VIAL (10MG/ML) FOR IV START INTRADERMA PRN; -SODIUM CHLORIDE 0.9% 1,000 ML IV SCH
[2025-02-25] MEDS: IV FLUID CONTINUATION 1,000 ML IV ONE (12:10)
[2025-02-25 12:12] VITALS: TEMP 97.2
[2025-02-25] MEDS: LACTATED RINGERS 1,000 ML IV SCH (12:19)
[2025-02-25 12:22] LABS: Glucose,Whole Blood 130 mg/dL (70-110)
[2025-02-25] MEDS ORDERED: LIDOCAINE 1% INJ 10MG/ML (20 ML MDV) ONE (12:58)
[2025-02-25] MEDS ORDERED: PROPOFOL 10 MG/ML 20 ML VIAL IV ONE (12:58)
--- NOTE | 2025-02-25 13:12 | P.PCN ---
Date of Procedure: 02/25/25 Procedure(s) Performed: BRIEF HISTORY: Patient is a 60-year-old pleasant white male scheduled for an elective colonoscopy as a part of screening for colon cancer. PROCEDURE PERFORMED: Colonoscopy. PREOPERATIVE DIAGNOSIS: Screening for colon cancer. IV sedation per Anesthesia. PROCEDURE: After informed consent was obtained, the patient, was brought into the endoscopy unit. IV sedation was administered by Anesthesia under continuous monitoring. Digital rectal examination was normal. Initially the Olympus CF-160 flexible video colonoscope was then inserted in the rectum, gradually advanced into the cecum without any difficulty. Careful examination was performed as the scope was gradually being withdrawn. Ileocecal valve and the appendiceal orifice were visualized and appeared normal. Prep was excellent. Mucosa of the cecum, ascending colon, transverse colon, descending colon, sigmoid colon, and rectum appeared normal. Scattered sigmoid diverticulosis. Retroflexion was performed in the rectum and no lesions were seen. The patient tolerated the procedure well. IMPRESSION: Normal-appearing colon from rectum to cecum with no evidence of colorectal neoplasia. Scattered sigmoid diverticulosis. RECOMMENDATIONS: Findings of this examination were discussed with the patient as well as his family. He was advised to have repeat screening colonoscopy in 10 years.
[2025-02-25 13:38] VITALS: BP 107/73; PULSE 84; RESP 18
== END 2025-02-25 13:48 | disposition home or self-care (01) ==
LOC: ORWHC2ENDO 11:27
PROVIDERS: ATTEND Internal Medicine Gastroenterology
DX: Z12.11 Encounter for screening for malignant neoplasm of colon (principal); K57.30 Diverticulosis of large intestine without perforation or abscess without bleeding; I10 Essential (primary) hypertension; E78.5 Hyperlipidemia, unspecified; Z87.891 Personal history of nicotine dependence; Z86.711 Personal history of pulmonary embolism; Z79.899 Other long term (current) drug therapy
CPT/HCPCS: 45378; J2003; J2704